=== PATIENT | male | born 1955 | race Caucasian/White ===

== ENCOUNTER 2016-08-04 07:06 | Inpatient (IN) | payer OTHER ==
[~2016-08-04] VITALS: Ht 172.7 cm; Wt 99.8 kg
--- NOTE | 2016-08-04 07:16 | NUR ---
C/O NUMBNESS AND TINGLING TO LEFT SIDE OF FACE AND LEFT ARM X 2 DAYS, OCCURRED AFTER RECEIVING A MASSAGE 2 DAYS AGO. DENIES CHEST PAIN. 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
--- NOTE | 2016-08-04 07:19 | ED NEURO DEFICIT/STROKE ---
History of Present Illness General Chief Complaint: General Adult Stated Complaint: NUMBNESS TO LEFT SIDE OF FACE Source: patient, family, old records Exam Limitations: no limitations Vital Signs & Intake/Output Vital Signs & Intake/Output Vital Signs Date Time Temp Pulse Resp B/P Pulse O2 O2 Flow FiO2 Ox Delivery Rate 08/05 2325 98.0 88 18 178/80 95 Room Air 08/05 1704 98.5 91 18 154/72 95 Room Air 08/05 0806 97.7 85 18 182/84 04 0700 97.7 85 18 182/84 95 Room Air 08/05 0034 98.3 77 18 168/78 97 Room Air ED Intake and Output 08/06 0000 08/05 1200 Intake Total 610 400 Output Total Balance 610 400 Intake, IV 10 Intake, Oral 600 400 Allergies Coded Allergies: No Known Allergies (08/04/16) Reconcile Medications Aspirin (Aspirin*) 325 MG TABLET 1 TAB PO DAILY HEART HEALTH (Reported) Naproxen Sodium (Aleve) 220 MG CAPSULE 2 CAP PO QPM HIP PAIN (Reported) Triage Note: C/O NUMBNESS AND TINGLING TO LEFT SIDE OF FACE AND LEFT ARM X 2 DAYS, OCCURRED AFTER RECEIVING A MASSAGE 2 DAYS AGO. DENIES CHEST PAIN Triage Nurses Notes Reviewed? yes Onset: Abrupt Duration: day(s):, constant, continues in ED, getting worse Severity: moderate, severe New Weakness: LUE Altered Sensations: left facial Impaired Ability: clumsiness LUE HPI: Patient presents for evaluation of left facial numbness and tingling that began about 2 days ago. pt has lower left facial and lue weakness that has been constant and worsening. phx of bells palsy. had a massage 2 days ago with a "floating feeling" since, in addition to feeling cold, sore throat and fatigue. Past History Travel History Traveled to [place] past 21 day No Medical History Any Pertinent Medical History? see below for history Cardiovascular: CAD Musculoskeletal: left hip problem Surgical History Surgical History: CABG, cholecystectomy Psychosocial History What is your primary language [place] Tobacco Use: Never used ETOH Use: denies use Family History Hx Contributory? No Review of Systems Review of Systems Constitutional: Reports: no symptoms. EENTM: Reports: no symptoms. Respiratory: Reports: no symptoms. Cardiovascular: Reports: no symptoms. GI: Reports: no symptoms. Genitourinary: Reports: no symptoms. Musculoskeletal: Reports: no symptoms. Skin: Reports: no symptoms. Neurological/Psychological: Reports: see HPI. Hematologic/Endocrine: Reports: no symptoms. Immunologic/Allergic: Reports: no symptoms. All Other Systems: Reviewed and Negative Physical Exam Physical Exam General Appearance: SEE BELOW Cranial Nerves: SEE BELOW Comments: Gen.: Well-nourished, well-developed, no acute respiratory distress. Head: Normocephalic, atraumatic. Eyes: Normal inspection bilaterally Ears: Normal inspection bilaterally Face: Left facial droop, decreased sensation over the lower half of the face, weakness of the left lower lid and bucinator muscle. Nose: Normal inspection Throat/mouth : Moist mucosa Neck: Supple, full range of motion, no goiter Heart: Regular rate and rhythm, no murmurs rubs or gallops Lungs: Clear to auscultation bilaterally with normal air entry Chest: Nontender Back: Normal range of motion Abdomen: Soft, nontender, nondistended, normal bowel sounds Extremities: Normal range of motion grossly, equal radial pulses, no cyanosis clubbing or edema, weakened piece hand of the left hand, decreased muscle strength of the left lower extremity (patient states is chronic secondary to hip disease) Neurologic: Cranial nerves , speech is clear Skin: warm and dry Psychiatric: Calm, cooperative, no apparent delusions or hallucinations Core Measures CVA/TIA Diagnosis: Yes Severe Sepsis Present: No Septic Shock Present: No Progress Differential Diagnosis: Varghese's Palsy, stroke Plan of Care: Orders Procedure Date/time Status House Staff 08/05 0718 Active Change service to 08/05 0718 Active Anticipated Discharge 08/05 UNK Active Therapeutic Exercises 08/05 UNK Complete OT EVAL LOW COMPLEX 30 MIN 08/05 UNK Complete Neuromuscular Re-Ed 08/05 UNK Complete ADL/SelfCare 08/05 UNK Complete Current Medications Sig/Heidi Start time Last Medication Dose Stop Time Status Admin Oxycodone/ 2 TAB Q6P PRN 08/04 1215 AC Acetaminophen (Percocet) Laboratory Tests 08/05/16 0627: Anion Gap 11, Estimated GFR > 60, BUN/Creatinine Ratio 21.4, Triglycerides 106, Cholesterol 175, LDL Cholesterol, Calc 111, HDL Cholesterol 43, Cholesterol/HDL Ratio 4, CBC w Diff NO MAN DIFF REQ, RBC 4.64 L, MCV 86.7, MCH 29.0, RDW 13.0, MPV 8.2, Gran % 70.6, Lymphocytes % 15.9 L, Monocytes % 9.4 H, Eosinophils % 3.7, Basophils % 0.4, Absolute Granulocytes 7.5 H, Absolute Lymphocytes 1.7, Absolute Monocytes 1.0 H, Absolute Eosinophils 0.4, Absolute Basophils 0, PUBS MCHC 33.4 Diagnostic Imaging: Discussed w/RAD: CT Scan. Radiology Impression: PATIENT: ARTURO ACOSTA PRESENT AGE: 60 PATIENT ACCOUNT NO: [id number] : 55 LOCATION: [facility] ORDERING PHYSICIAN: RAMSES VARGHESE MD SERVICE DATE: 08/04/16 EXAM TYPE: CAT - CT HEAD WO IV CONTRAST EXAMINATION: CT HEAD WITHOUT CONTRAST CLINICAL INFORMATION: Left facial weakness and left upper extremity weakness. COMPARISON: No relevant prior imaging is available. TECHNIQUE: Contiguous axial imaging was performed from the skull base to vertex without intravenous administration of contrast. DLP: 672.25 mGy-cm FINDINGS: There is no acute intracranial hemorrhage or abnormal extra-axial collection. No intracranial mass effect or midline shift. Lateral and third ventricles are normal. No hydrocephalus. Shepherd-white matter differentiation is preserved and there is no evidence of acute territorial infarct. A few scattered ill-defined foci of hypoattenuation are visualized within the periventricular white matter that most likely represent a chronic manifestation of small vessel ischemia. The calvarium and skull base are intact. Mastoid air cells and middle ear cavities are well aerated. There is mild paranasal sinus disease within the ethmoid air cells. IMPRESSION: There are a few scattered chronic small vessel ischemic changes within the periventricular white matter. No evidence of acute territorial infarct or hemorrhage. DICTATED BY: IGNACIO AG MD DATE/TIME DICTATED:08/04/16942 MANAGER VALUATION: KATHARINA DATE/TIME TRANSCRIBED:08/04/16942 CONFIDENTIAL, DO NOT COPY WITHOUT APPROPRIATE AUTHORIZATION. <Electronically signed in Other Vendor System> SIGNED BY: IGNACIO AG MD 08/04/1652 Initial ED EKG: NSR, rate (88) Comments: 08/04/2016 10:11:20 AM I have updated Arturo on his test results and he has no complaint at this time. As a matter fact his left arm feels better. Patient's case discussed with Dr. Jones who requests initiation of po labetolol. Departure Departure Disposition: STILL A PATIENT Condition: Stable Clinical Impression Primary Impression: CVA (cerebral vascular accident) Qualifiers: CVA mechanism: unspecified Qualified Code: I63.9 - Cerebral infarction, unspecified Referrals: LEIGH GHOSH,MALIKA Stoll (PCP/Family) Departure Forms: Customer Survey General Discharge Information Admission Note Spoke With: CANDE JONES MD Documentation of Exam: Documentation of any treatments & extenuating circumstances including Concerns Regarding Discharge (functional status, medication knowledge or non-compliance, living conditions, etc.) that warrant an admission rather than observation: Patient presents clinically consistent with a CVA. Although he provides a past history of "borderline high blood pressure), his blood pressure upon presentation to the emergency department was severely elevated requiring IV labetalol. I suspect the patient has had untreated hypertension for an unknown period of time. I feel he now requires hospitalization for urgent evaluation of reversible causes of his CVA and for the initiation of antihypertensive treatment. His severely high blood pressure places him at risk of CVA, chest pain, congestive heart failure and other end organ failure. i Do not feel he has a good candidate for outpatient management under the circumstances. In addition to initiation of antihypertensive medications and monitoring of heart rate and blood pressure, neurology consultation and follow-up MRI scan should also be considered. In addition cardiology consultation should also be considered as well as echocardiogram for possible cardioembolic disease. I feel this patient will require a multiple day hospitalization. Critical Care Note Critical Care Note Critical Care Time: 30-74 min
--- NOTE | 2016-08-04 07:30 | NUR ---
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 STATES THE FACIAL DROOP DEVELOPED TODAY. HX BELLS PALSY 1.5 YEARS AGO, FEELS "ABOUT THE SAME" THIS TIME.
--- NOTE | 2016-08-04 07:32 | NUR ---
MEDICAL STUDENT INTO EVALUATE PATIENT.
[2016-08-04 07:47] LABS: ABSOLUTE BASOPHIL COUNT 0 /CUMM (0.0-0.2); ABSOLUTE EOSINOPHIL COUNT 0.4 /CUMM (0.0-0.7); ABSOLUTE GRANULOCYTE CT 5.6 /CUMM (1.4-6.5); BASOPHIL % 0.5 % (0.0-2.0); EOSINOPHIL % 4.1 % (0-5); HEMATOCRIT 41.1 % (42-52); MEAN CORPUSCULAR HGB CONC 33.4 G/DL (33.0-37.0); MEAN CORPUSCULAR VOLUME 86.7 FL (80.0-94.0); PLATELET COUNT 266 /CUMM (130-400); RBC DISTRIBUTION WIDTH 12.9 % (11.5-14.5); RED BLOOD CELL CT 4.74 /CUMM (4.70-6.10)
--- NOTE | 2016-08-04 08:55 | NUR ---
PT MEDICATED WITH IV LABETALOL PER ORDERS
--- NOTE | 2016-08-04 09:17 | NUR ---
PT TO CT SCAN VIA STRETCHER AT THIS TIME.
--- NOTE | 2016-08-04 09:23 | NUR ---
PT RETURNS FROM CT SCAN
[2016-08-04] MEDS ORDERED: ASPIRIN325 M2 PO (09:24)
[2016-08-04] MEDS ORDERED: ALEVE220 M1 PO (09:25)
--- NOTE | 2016-08-04 09:52 | CT SCAN REPORT ---
EXAMINATION: CT HEAD WITHOUT CONTRAST CLINICAL INFORMATION: Left facial weakness and left upper extremity weakness. COMPARISON: No relevant prior imaging is available. TECHNIQUE: Contiguous axial imaging was performed from the skull base to vertex without intravenous administration of contrast. DLP: 672.25 mGy-cm FINDINGS: There is no acute intracranial hemorrhage or abnormal extra-axial collection. No intracranial mass effect or midline shift. Lateral and third ventricles are normal. No hydrocephalus. Shepherd-white matter differentiation is preserved and there is no evidence of acute territorial infarct. A few scattered ill-defined foci of hypoattenuation are visualized within the periventricular white matter that most likely represent a chronic manifestation of small vessel ischemia. The calvarium and skull base are intact. Mastoid air cells and middle ear cavities are well aerated. There is mild paranasal sinus disease within the ethmoid air cells. IMPRESSION: There are a few scattered chronic small vessel ischemic changes within the periventricular white matter. No evidence of acute territorial infarct or hemorrhage.
--- NOTE | 2016-08-04 10:26 | NUR ---
PT MEDICATED WITH PO LABETALOL PER ORDERS
--- NOTE | 2016-08-04 10:38 | History & Physical ---
ERNESTINA MARISCAL 08/04/16 1038: General Information and HPI MD Statement: I have seen and personally examined ARTURO ACOSTA and documented this H&P. The patient is a 60 year old M who presented with a patient stated chief complaint of [facial droop, left upper extremity change in sensation]. Source of Information: patient, family Exam Limitations: no limitations History of Present Illness: Mr Acosta is a 60-year-old gentleman with a PMH of CAD s/p triple vessel CABG at [facility] (2014), HTN, HLD, cholecystectomy (2012) who presents with complaints of left facial droop and change in sensation of his left extremity. He reports that on Wednesday he woke up with some mild generalized muscle aches and intermittent chills, went for his regular massage and 15 minutes after noticed significant increase in the chills and muscle aches which subsided as the day went on. 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 This morning he woke up and noticed that he was having a hard time holding onto his coffee mug using his left hand. He denied any overt weakness but did endorse some difficulty with performing the action of directing the coffee mug to his mouth. His friend also notices a new onset of left-sided facial droop which prompted him to come to the ER. 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 He also endorses a sick contact at work and flulike symptoms. ROS: Left-sided neck soreness/Sore throat that started yesterday, mild slurred speech this morning he denies any headaches, blurry vision, choking, difficulty swallowing, palpitations, shortness of breath, nausea, abdominal pain, numbness/ weakness in any of his extremities. NB: The patient was previously prescribed metoprolol, statin and aspirin but has not been any of these medications for one year due to noncompliance. Allergies/Medications Allergies: Coded Allergies: No Known Allergies (08/04/16) Home Med list Aspirin (Aspirin*) 325 MG TABLET 1 TAB PO DAILY HEART HEALTH (Reported) Naproxen Sodium (Aleve) 220 MG CAPSULE 2 CAP PO QPM HIP PAIN (Reported) Past History Travel History Traveled to [place] past 21 day No Medical History Neurological: BELLS PALSY EENT: NONE Cardiovascular: CAD, hyperlipidemia Respiratory: NONE Gastrointestinal: NONE Hepatic: NONE Renal: NONE Musculoskeletal: left hip problem Psychiatric: NONE Endocrine: NONE Blood Disorders: NONE Cancer(s): NONE INTERNAL GRINDER TENDER/Reproductive: NONE Surgical History Surgical History: CABG, cholecystectomy Past Family/Social History Psychosocial History ETOH Use: occasional use Illicit Drug Use: denies illicit drug use Review of Systems Review of Systems Constitutional: Reports: see HPI. EENTM: Reports: no symptoms. Cardiovascular: Reports: no symptoms. Respiratory: Reports: no symptoms. GI: Reports: no symptoms. Genitourinary: Reports: no symptoms. Musculoskeletal: Reports: see HPI. Neurological/Psychological: Reports: see HPI. Exam & Diagnostic Data Last 24 Hrs of Vital Signs/I&O Vital Signs Date Time Temp Pulse Resp B/P Pulse O2 O2 Flow FiO2 Ox Delivery Rate 08/04 1157 99.0 90 18 194/98 96 Room Air 08/04 1051 98.0 88 198/94 08/04 1025 80 192/98 08/04 1020 98.0 80 18 192/98 100 Room Air 08/04 0926 78 184/100 08/04 0926 97 Room Air Room Air 08/04 0925 98.1 74 20 184/100 96 Room Air 08/04 0855 80 208/100 08/04 0837 208/100 08/04 0836 225/107 08/04 0804 80 216/106 08/04 0748 98.6 08/04 0729 219/108 08/04 0717 83 18 220/110 95 Room Air Intake & Output 08/04 1600 08/04 0800 08/04 0000 Intake Total 120 Output Total Balance 120 Intake, Oral 120 Patient 220 lb Weight Physical Exam General Appearance Alert, Cooperative, No Acute Distress Skin No Breakdown HEENT PERRLA, Mucous Membr. moist/pink Neck No LAD, Left side of neck appears slightly powers than right, possibly secondary to the droop Cardiovascular Regular Rate, Normal S1, Normal S2 Lungs Clear to Auscultation, Normal Air Movement Abdomen Normal Bowel Sounds, Soft, No Tenderness Neurological Normal Speech, Strength at 5/5 X4 Ext, Normal Tone, Sensation Intact, Cranial Nerves 3-12 NL, At rest there is a complete left facial droop incorporating the V1 region. Facial wrinkling is preserved with eye opening action, There is a very slight dysmmetria in the LUE at full extension. Visual robbins are intact in all quadrants BL (-) neglect. Negative babinski Extremities No Edema, Normal Pulses Last 24 Hrs of Labs/Morales: Laboratory Tests 08/04/16 0740: Anion Gap 12, Estimated GFR > 60, BUN/Creatinine Ratio 21.4, Glucose 128 H, Calcium 9.9, Phosphorus Pending, Magnesium Pending, Total Bilirubin 0.4, AST 25, ALT 40, Alkaline Phosphatase 82, Troponin I 0.02, Total Protein 7.8, Albumin 4.4 , Globulin 3.4, Albumin/Globulin Ratio 1.3, CBC w Diff NO MAN DIFF REQ, RBC 4.74 , MCV 86.7, MCH 29.0, RDW 12.9, MPV 8.0, Gran % 62.0, Lymphocytes % 22.0, Monocytes % 11.4 H, Eosinophils % 4.1, Basophils % 0.5, Absolute Granulocytes 5.6, Absolute Lymphocytes 2.0, Absolute Monocytes 1.0 H, Absolute Eosinophils 0.4, Absolute Basophils 0, PUBS MCHC 33.4 08/04/16 0738: Lyme Disease Antibody Pending Diagnostic Data EKG Results Sinus rhythm, HR 80 bpm. Nonspecific intraventricular conduction delay. LA interval 176. QTC 450 Other Results There are a few scattered chronic small vessel ischemic changes within the periventricular white matter. No evidence of acute territorial infarct or hemorrhage. Assessment/Plan Assessment: 60-year-old gentleman with a PMH of CAD s/p triple vessel CABG at [facility] (2014), HTN, HLD, cholecystectomy (2013), previous Varghese's palsy who presents with complaints of left facial droop and change in sensation of his left extremity. Patient endorsed preceding generalized muscle aches/chills on Wednesday, went for regular massage later that day with worsening of myalgias/chills that subsided as the day went on. Woke up this morning and noticed difficulty with holding his coffee mug using his left hand. He was then noted to have a new onset left facial droop. Previously prescribed metoprolol, statin and aspirin which she has not been taking for over one year. He endorses a sick contact with flulike symptoms over one week ago. VS on admission BP 220/110, HR 83, RR 18, SPO2 95% on RA, T 98.6 Pertinent Labs: WBC 9.0, H&H 13.7/41.1, platelets 266, sodium 143, potassium 3.9 , chloride 103, bicarbonate 28, BUN/Cr CR 15/0.7, glucose [address] is indicated above Patient received labetalol 10 mg IV 1, aspirin 325 mg 1, labetalol 100 mg PO X1 in the ER. Problem list: 1. TIA/CVA 2. Hypertensive urgency 3. CAD s/p triple vessel CABG (2014) noncompliant with medications for> 1 year 4. Hypertension 5. Hyperlipidemia Plan: * Admit to telemetry for continuous cardiac monitoring * DDX: TIA/CVA vs Varghese's palsy in the setting of recent sick contact vs carotid injury s/p massage with complaints of "sore throat sensation and fullness in the left neck" * Cardiology on board: Follow-up echocardiogram and carotid ultrasound no evidence of heart block on EKG. We'll follow-up Lyme titer * Follow-up lipid panel in the a.m. Patient will likely benefit from medium/high dose atorvastatin, aspirin and beta hubert therapy with his history of CAD and possible TIA/CVA * Neurology consult placed. Will follow up with recommendations for target blood pressure. At this time would be inclined to maintain a blood pressure of 160/90 * MRI of head tomorrow * Bedside swallow has been passed * Heart healthy diet * Neurochecks Q3 * DVT prophylaxis: ALPs. Will defer starting pharmacological anticoagulation until carotid ultrasound has been performed to rule out any evidence of vascular injury * Full code As Ranked By This Provider Problem List: 1. CVA (cerebral vascular accident) Qualifiers CVA mechanism: unspecified Qualified Code: I63.9 - Cerebral infarction, unspecified 2. Hypertensive urgency 3. CAD (coronary artery disease) Core Measures/Miscellaneous Acute Coronary Syndrome ACS Diagnosis: No Cerebrovascular Accident CVA/TIA Diagnosis: Yes NIH Stroke Scale: Total 2 Date Last Known Well: 08/04/16 Neurological S/S of CVA: Facial Hemiparesis Symptom Start Date: 08/04/16 Bedside Swallow Eval Done: Yes Result of Evaluation: Pass Antithrombotic: Yes AFIB: No Aflutter: No Evidence of Atherosclerosis: Yes LDL Assessed Within 24 Hours: Yes Currently on Statin: Yes Congestive Heart Failure CHF Diagnosis: No Venous Thromboembolism VTE Risk Factors: Age > 40 No Mech VTE prophylaxis d/t: No contraindications No VTE Pharm Prophylaxis d/t: No contraindications VTE Diagnosis: No VTE Type: NONE VTE Confirmed by (Test): NONE Severe Sepsis Severe Sepsis Present: No Septic Shock Septic Shock Present: No Miscellaneous Documentation Attending Case Discussed With: CANDE JONES MD Primary Care Physician: MALIKA ABRAHAM MD Patient sees these Specialists Dr Pang (personnel officer in [place]) Level of Patient Care: Telemetry Resident Review Statement Resident Statement: examined this patient, discussed with equine internship, agreed with equine internship, discussed with family, reviewed EMR data (avail), discussed with case mgmt, reviewed images CANDE JONES MD 08/04/166: Attending MD Review Statement Attending Statement Attending MD Statement: examined this patient, discuss w/resident/PA/BIOINFORMATICS SCIENTIST, agreed w/resident/PA/BIOINFORMATICS SCIENTIST, reviewed EMR data (avail) Attending Assessment/Plan: 60M presenting with acute CVA with left facial droop and left upper extremity apraxia. History of CAD s/p CABG, HTN, HLD. Symptoms have persisted and started 1 day ago, not a candidate for tPA. No tele events. Passed bedside swallow. Will continue ASA, start Plavix, high dose statin, obtain MRI head, carotid doppler, echocardiogram. BP improved now, will continue current management and decrease slowly tomorrow. Follow cardiology and neurology recommendations.
--- NOTE | 2016-08-04 11:01 | NUR ---
HOUSE STAFF AT BEDSIDE
--- NOTE | 2016-08-04 11:25 | Cons- Cardiology ---
See Addendum ANTONELLA CASAS MD 08/04/16 1125: General Information and HPI Consulting Request Date of Consult: 08/04/16 Requested By: CANDE JONES MD Reason for Consult: TIA/ CVA Source of Information: patient, family Exam Limitations: no limitations History of Present Illness: Mr. Emerson is a 60-year-old gentleman with known coronary artery disease. He received his first coronary stents at age 43 back in 1997, he subsequently underwent a CABG in 2014. He also has a former history of smoking. He is followed by Dr. Wilian Pang (Cardiology) in [place]. He presented today with left upper extremity tingling and numbness and left facial droop of 2 days' duration. Patient states that the symptoms started initially 2 days ago after he had a massage. Patient also states that about a year ago he abruptly stopped taking all his meds namely an aspirin, statin and beta hubert. He has not notified his PCP or his collector of internal revenue of his abrupt cessation of medications. He stated that after getting the massage couple of days ago he noted that he was "floating". Today when he went to go left a coffee cup with his left hand he noticed some weakness and inability to have a strong supervisor calibration. Subsequently he came to the emergency room with his for evaluation. At present he states that his symptoms have resolved. While in the emergency room his blood pressure was found to be 200 systolic. Allergies/Medications Allergies: Coded Allergies: No Known Allergies (08/04/16) Home Med List: Aspirin (Aspirin*) 325 MG TABLET 1 TAB PO DAILY HEART HEALTH (Reported) Naproxen Sodium (Aleve) 220 MG CAPSULE 2 CAP PO QPM HIP PAIN (Reported) Review of Systems Review of Systems Constitutional: Reports: see HPI. 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 Surgical History Surgical History: CABG, cholecystectomy Psychosocial History Smoking Status: Former Smoker ETOH Use: occasional use Illicit Drug Use: denies illicit drug use Exam & Diagnostic Data Vital Signs and I&O Vital Signs Date Time Temp Pulse Resp B/P Pulse O2 O2 Flow FiO2 Ox Delivery Rate 08/04 1051 98.0 88 198/94 08/04 1025 80 192/98 08/04 1020 98.0 80 18 192/98 100 Room Air 08/04 0926 78 184/100 08/04 0926 97 Room Air Room Air 08/04 0925 98.1 74 20 184/100 96 Room Air 08/04 0855 80 208/100 08/04 0837 208/100 08/04 0836 225/107 08/04 0804 80 216/106 08/04 0748 98.6 08/04 0729 219/108 08/04 0717 83 18 220/110 95 Room Air Intake & Output 08/04 1600 08/04 0800 08/04 0000 08/03 1600 08/03 0808/03 0000 Intake Total 120 Output Total Balance 120 Intake, Oral 120 Patient 220 lb Weight Physical Exam General Appearance: well developed/nourished, no apparent distress, alert, awake , comfortable Head: atraumatic, normal appearance Eyes: Bilateral: normal appearance, PERRL, EOMI. Ears, Nose, Throat: normal pharynx, normal ENT inspection, hearing grossly normal Respiratory: normal breath sounds, chest non-tender, no respiratory distress Cardiovascular: regular rate/rhythm Gastrointestinal: normal bowel sounds, soft, non-tender Extremities: normal inspection, normal capillary refill, normal range of motion Cranial Nerves: normal hearing, normal speech, PERRL, facial droop Labs/Morales Results: Laboratory Tests 08/04 08/04 0740 0738 Chemistry Sodium (137 - 145 mmol/L) 143 Potassium (3.5 - 5.1 mmol/L) 3.9 Chloride (98 - 107 mmol/L) 103 Carbon Dioxide (22 - 30 mmol/L) 28 Anion Gap (5 - 16) 12 BUN (9 - 20 mg/dL) 15 Creatinine (0.7 - 1.2 mg/dL) 0.7 Estimated GFR (>60 ml/min) > 60 BUN/Creatinine Ratio (7 - 25 %) 21.4 Glucose (65 - 99 mg/dL) 128 H Calcium (8.4 - 10.2 mg/dL) 9.9 Total Bilirubin (0.2 - 1.3 mg/dL) 0.4 AST (17 - 59 U/L) 25 ALT (21 - 72 U/L) 40 Alkaline Phosphatase (< 127 U/L) 82 Troponin I (<0.11 ng/ml) 0.02 Total Protein (6.3 - 8.2 g/dL) 7.8 Albumin (3.5 - 5.0 g/dL) 4.4 Globulin (1.9 - 4.2 gm/dL) 3.4 Albumin/Globulin Ratio (1.1 - 2.2 %) 1.3 Hematology CBC w Diff NO MAN DIFF REQ WBC (4.8 - 10.8 /CUMM) 9.0 RBC (4.70 - 6.10 /CUMM) 4.74 Hgb (14.0 - 18.0 G/DL) 13.7 L Hct (42 - 52 %) 41.1 L MCV (80.0 - 94.0 FL) 86.7 MCH (27.0 - 31.0 PG) 29.0 RDW (11.5 - 14.5 %) 12.9 Plt Count (130 - 400 /CUMM) 266 MPV (7.4 - 10.4 FL) 8.0 Gran % (42.2 - 75.2 %) 62.0 Lymphocytes % (20.5 - 51.1 %) 22.0 Monocytes % (1.7 - 9.3 %) 11.4 H Eosinophils % (0 - 5 %) 4.1 Basophils % (0.0 - 2.0 %) 0.5 Absolute Granulocytes (1.4 - 6.5 /CUMM) 5.6 Absolute Lymphocytes (1.2 - 3.4 /CUMM) 2.0 Absolute Monocytes (0.10 - 0.60 /CUMM) 1.0 H Absolute Eosinophils (0.0 - 0.7 /CUMM) 0.4 Absolute Basophils (0.0 - 0.2 /CUMM) 0 PUBS MCHC (33.0 - 37.0 G/DL) 33.4 Serology Lyme Disease Antibody Pending Diagnostic Data EKG Results Rate 88, P1 76, QRS 112, QTC [address], nonspecific ST-T wave changes Other Results PATIENT: ARTURO ACOSTA PRESENT AGE: 60 PATIENT ACCOUNT NO: [id number] : 55 LOCATION: [facility] ORDERING PHYSICIAN: RAMSES BORGES MD SERVICE DATE: 08/04/16 EXAM TYPE: CAT - CT HEAD WO IV CONTRAST EXAMINATION: CT HEAD WITHOUT CONTRAST CLINICAL INFORMATION: Left facial weakness and left upper extremity weakness. COMPARISON: No relevant prior imaging is available. TECHNIQUE: Contiguous axial imaging was performed from the skull base to vertex without intravenous administration of contrast. DLP: 672.25 mGy-cm FINDINGS: There is no acute intracranial hemorrhage or abnormal extra-axial collection. No intracranial mass effect or midline shift. Lateral and third ventricles are normal. No hydrocephalus. Shepherd-white matter differentiation is preserved and there is no evidence of acute territorial infarct. A few scattered ill-defined foci of hypoattenuation are visualized within the periventricular white matter that most likely represent a chronic manifestation of small vessel ischemia. The calvarium and skull base are intact. Mastoid air cells and middle ear cavities are well aerated. There is mild paranasal sinus disease within the ethmoid air cells. IMPRESSION: There are a few scattered chronic small vessel ischemic changes within the periventricular white matter. No evidence of acute territorial infarct or hemorrhage. DICTATED BY: IGNACIO AG MD DATE/TIME DICTATED:08/04/16942 SAND MIXER OPERATOR:KATHARINA DATE/TIME TRANSCRIBED:08/04/16942 CONFIDENTIAL, DO NOT COPY WITHOUT APPROPRIATE AUTHORIZATION. <Electronically signed in Other Vendor System> SIGNED BY: IGNACIO AG MD 08/04 0952 Assessment/Plan Assessment/Plan Assessment- 1. CVA/TIA; his symptoms could be secondary to embolization of a carotid plaque versus carotid dissection after getting massage 2 days ago 2. Hypertension 3. HLD 4. CAD, s/p stents placed in 1999, CABG in 2014 5. Hypertensive urgency Plan- - Trend troponin EKG - Transthoracic echocardiogram - Start high-dose statin - Aspirin 81 mg daily starting tomorrow (he is already received 325 mg today) - Carotid Dopplers - Neurology consult; addressing goal blood pressure with neurology and titrate labetalol accordingly - Consider MRA neck to r/o carotid dissection - Compliance with medication regime was extensively discussed and reinforced with the patient and his who was present at bedside Consult Acknowledgment - Thank you for your consult request. CAMACHO SHIPMAN MD 08/04/16 2016: Assessment/Plan Assessment/Plan Attending Addendum: The patient was seen and examined by me and all available data, including ECGs, were personally reviewed by myself. The case was discussed with the patient and her as well as the medical housestaff. I agree with the plan as outlined above. Consult Acknowledgment - Thank you for your consult request.
--- NOTE | 2016-08-04 11:33 | NUR ---
RESIDENT AT BEDSIDE. UNABLE TO COMPLETE NIHSS AT THIS TIME PT IS BEING EVALUATED BY RESIDENT. BP 190/100, RESIDENT AWARE.
--- NOTE | 2016-08-04 12:05 | NUR ---
HOUSE STAFF HANNAH COMPLETE. PT ALERT, AMBULATING INDEPENDENTLY AROUND ROOM, SR 80S ON MONITOR, NO COMPLAINTS. NIHSS 0 AT THIS TIME. LEFT FACIAL DROOP NOTED, SPEECH CLEAR. MEAL TRAY ORDERED.
--- NOTE | 2016-08-04 12:27 | NUR ---
PT TO US ON STRETCHER NOW.
--- NOTE | 2016-08-04 13:38 | ULTRASOUND REPORT ---
EXAMINATION: DUPLEX BILATERAL CAROTID ULTRASOUND CLINICAL INFORMATION: TIA versus dissection. Left-sided facial paralysis status post massage. COMPARISON: None. TECHNIQUE: \H\B\N\ilateral carotid US was performed using real-time ultrasound and Doppler techniques (integrating B-mode 2D vascular images, Doppler spectral analysis and color flow Doppler imaging). These techniques were utilized to interrogate the extracranial carotid and vertebral arteries bilaterally. The degree of stenosis is based off criteria similar to NASCET. FINDINGS: Right side: 1. Small amount of hyperechoic plaque is seen in the ECA/ICA region. 2. The common carotid artery velocity is 140 cm/s. 3. The internal carotid artery velocities are 86 cm/s systolic and 17 cm/s diastolic. 4. The external carotid artery velocity is 152 cm/s. Left side: 1. Small amount of hyperechoic plaque is seen in the ECA/ICA region. 2. The common carotid artery velocity is 125 cm/s. 3. The internal carotid artery velocities are 103 cm/s systolic and 28 cm/s diastolic. 4. The external carotid artery velocity is 143 cm/s. ADDITIONAL FINDINGS: 1. The vertebral arteries show antegrade flow. IMPRESSION: 1. RIGHT: Minimal, nonhemodynamically significant stenosis of the proximal right internal carotid artery corresponding to a 0-49% stenosis by velocity criteria. 2. LEFT: Minimal, nonhemodynamically significant stenosis of the proximal left internal carotid artery corresponding to a 0-49% stenosis by velocity criteria.
--- NOTE | 2016-08-04 14:02 | NUR ---
DR GARCIA AT BEDSIDE. PT EATING LUNCH.
--- NOTE | 2016-08-04 15:07 | NUR ---
SITTING AT END OF STRETCHER, DOING HAND EXERCISES, NO COMPLAINTS. AWAITING BED ASSIGNMENT. PT WEARING T-SHIRT AND SWEAT PANTS WTIH NON-SKID SOCKS, DOES NOT WANT TO CHANGE INTO GOWN AT THIS TIME. T-SHIRT HAS POCKET FOR PORTABLE TELE PACK.
--- NOTE | 2016-08-04 15:47 | NUR ---
ROOM 187
--- NOTE | 2016-08-04 16:31 | NUR ---
DR KEYES AT BEDSIDE. TELE CALLED FOR REPORT, UNABLE TO TAKE REPORT UNTIL BED IS CLEAN.
--- NOTE | 2016-08-04 17:01 | NUR ---
REPORT CALLED TO YONATAN ON 1N. PER RN, PT CANNOT COME TO TELE WITH ORDER FOR NIHSS Q1H. HAS BEEN SCORING "0" SINCE NOON. RESIDENT PAGED TO DISCUSS, AWAITING CALLBACK. PT CAN GO TO TELE IF ORDER IS CHANGED TO Q2.
--- NOTE | 2016-08-04 17:05 | Cons- Neurology ---
"General Information and HPI Consulting Request Date of Consult: 08/04/16 Requested By: CANDE JONES MD Reason for Consult: Weakness left face and arm Source of Information: patient, family, EMS Exam Limitations: no limitations History of Present Illness: 60-year-old right-handed man who awakened yesterday morning and noted difficulty using his left hand while dressing. In the mirror he noted weakness of the left face as well. Some associated slurring of speech according to his . No headache or leg symptoms. He also denies any loss of feeling on the left side or any change in vision. 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 Allergies/Medications Allergies: Coded Allergies: No Known Allergies (08/04/16) Home Med List: Aspirin (Aspirin*) 325 MG TABLET 1 TAB PO DAILY HEART HEALTH (Reported) Naproxen Sodium (Aleve) 220 MG CAPSULE 2 CAP PO QPM HIP PAIN (Reported) Current Medications: Current Medications Sig/Heidi Start time Last Medication Dose Route Stop Time Status Admin Amlodipine Besylate 0 .STK-MED ONE 08/04 1649 DC PO Amlodipine Besylate 5 MG DAILY 08/04 1630 AC 08/04 PO 1647 Aspirin 0 .STK-MED ONE 08/04 1007 DC PO Aspirin 325 MG ONCE ONE 08/04 1000 DC 08/04 PO 08/04 1001 1007 Atorvastatin Calcium 80 MG 1700 08/04 1700 AC 08/04 PO 1647 Ibuprofen 600 MG Q6P PRN 08/04 1215 AC PO Labetalol HCl 0 .STK-MED ONE 08/04 1327 DC IV Labetalol HCl 5 MG ONCE ONE 08/04 1315 DC 08/04 IV 08/04 1316 1327 Labetalol HCl 0 .STK-MED ONE 08/04 1026 DC PO Labetalol HCl 100 MG ONCE ONE 08/04 1015 DC 08/04 PO 08/04 1016 1025 Labetalol HCl 0 .STK-MED ONE 08/04 0854 DC IV Labetalol HCl 10 MG ONCE ONE 08/04 0815 DC 08/04 IV 08/04 0816 0855 Oxycodone/ 1 TAB Q6P PRN 08/04 1215 AC Acetaminophen PO Oxycodone/ 2 TAB Q6P PRN 08/04 1215 AC Acetaminophen PO Review of Systems Review of Systems: ROS: The patient had no constitutional complaints. Vision clear, no diplopia ENT: No vertigo or tinnitus or hearing loss Cardiac: |Chest pain and palpitations denied Respiratory: No dyspnea or wheezing GI: No abdominal pain nausea or diarrhea. 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 Surgical History Surgical History: CABG, cholecystectomy Psychosocial History Smoking Status: Former Smoker ETOH Use: occasional use Illicit Drug Use: denies illicit drug use Exam & Diagnostic Data Vital Signs and I&O Vital Signs Date Time Temp Pulse Resp B/P Pulse O2 O2 Flow FiO2 Ox Delivery Rate 08/04 1647 97.0 78 20 170/84 08/04 1640 97.0 78 20 170/84 98 Room Air 08/04 1532 71 18 182/90 98 Room Air 08/04 1404 78 172/88 08/04 1327 98.7 78 22 180/86 08/04 1326 98.7 78 22 180/86 96 Room Air 08/04 1304 97.4 72 18 198/104 96 Room Air 08/04 1157 99.0 90 18 194/98 96 Room Air 08/04 1051 98.0 88 198/94 08/04 1025 80 192/98 08/04 1020 98.0 80 18 192/98 100 Room Air 08/04 0926 78 184/100 08/04 0926 97 Room Air Room Air 08/04 0925 98.1 74 20 184/100 96 Room Air 08/04 0855 80 208/100 08/04 0837 208/100 08/04 0836 225/107 08/04 0804 80 216/106 08/04 0748 98.6 08/04 0729 219/108 08/04 0717 83 18 220/110 95 Room Air Intake & Output 08/04 1600 08/04 0800 08/04 0000 Intake Total 120 Output Total Balance 120 Intake, Oral 120 Patient 220 lb Weight Physical Exam: On exam the patient appeared generally well and in no distress. No carotid bruits and no cardiac murmur. No peripheral edema Mental status: Alert, attentive, fully oriented, no language errors, recall and general fund of knowledge seem intact Funduscopic unremarkable Visual robbins full , Eye movements full without nystagmus, pupils midsize equal round and reactive to light. Facial movement weak on left, lower face more than upper Facial sensation normal bilaterally Hearing intact bilaterally Uvula elevates midline Tongue protrusion is midline Shoulder shrug symmetric Motor : Reduced internal communications specialist on left, pronator and slight downward drift of the left arm. Praxis diminished on movements of left fingers and hand Sensation intact to primary modes Tendon reflexes normal and symmetric without pathologic signs Coordination no ataxia Gait within normal limits, heel and toe walking okay, Romberg okay Last 48 Hours of Lab Results: Laboratory Tests 08/04 08/04 0740 0738 Chemistry Sodium (137 - 145 mmol/L) 143 Potassium (3.5 - 5.1 mmol/L) 3.9 Chloride (98 - 107 mmol/L) 103 Carbon Dioxide (22 - 30 mmol/L) 28 Anion Gap (5 - 16) 12 BUN (9 - 20 mg/dL) 15 Creatinine (0.7 - 1.2 mg/dL) 0.7 Estimated GFR (>60 ml/min) > 60 BUN/Creatinine Ratio (7 - 25 %) 21.4 Glucose (65 - 99 mg/dL) 128 H Calcium (8.4 - 10.2 mg/dL) 9.9 Phosphorus (2.5 - 4.5 mg/dL) 3.8 Magnesium (1.6 - 2.3 mg/dL) 2.1 Total Bilirubin (0.2 - 1.3 mg/dL) 0.4 AST (17 - 59 U/L) 25 ALT (21 - 72 U/L) 40 Alkaline Phosphatase (< 127 U/L) 82 Troponin I (<0.11 ng/ml) 0.02 Total Protein (6.3 - 8.2 g/dL) 7.8 Albumin (3.5 - 5.0 g/dL) 4.4 Globulin (1.9 - 4.2 gm/dL) 3.4 Albumin/Globulin Ratio (1.1 - 2.2 %) 1.3 Hematology CBC w Diff NO MAN DIFF REQ WBC (4.8 - 10.8 /CUMM) 9.0 RBC (4.70 - 6.10 /CUMM) 4.74 Hgb (14.0 - 18.0 G/DL) 13.7 L Hct (42 - 52 %) 41.1 L MCV (80.0 - 94.0 FL) 86.7 MCH (27.0 - 31.0 PG) 29.0 RDW (11.5 - 14.5 %) 12.9 Plt Count (130 - 400 /CUMM) 266 MPV (7.4 - 10.4 FL) 8.0 Gran % (42.2 - 75.2 %) 62.0 Lymphocytes % (20.5 - 51.1 %) 22.0 Monocytes % (1.7 - 9.3 %) 11.4 H Eosinophils % (0 - 5 %) 4.1 Basophils % (0.0 - 2.0 %) 0.5 Absolute Granulocytes (1.4 - 6.5 /CUMM) 5.6 Absolute Lymphocytes (1.2 - 3.4 /CUMM) 2.0 Absolute Monocytes (0.10 - 0.60 /CUMM) 1.0 H Absolute Eosinophils (0.0 - 0.7 /CUMM) 0.4 Absolute Basophils (0.0 - 0.2 /CUMM) 0 PUBS MCHC (33.0 - 37.0 G/DL) 33.4 Serology Lyme Disease Antibody Pending Imaging/Other Studies: Carotid Dopplers: 1. The vertebral arteries show antegrade flow. IMPRESSION: 1. RIGHT: Minimal, nonhemodynamically significant stenosis of the proximal right internal carotid artery corresponding to a 0-49% stenosis by velocity criteria. 2. LEFT: Minimal, nonhemodynamically significant stenosis of the proximal left internal carotid artery corresponding to a 0-49% stenosis by velocity criteria. CT scan of the head without contrast: There are a few scattered chronic small vessel ischemic changes within the periventricular white matter. No evidence of acute territorial infarct or hemorrhage. Assessment/Plan Assessment: Stroke, sudden onset of left face and arm weakness, motor only syndrome, probable small right subcortical lacune. Patient reports some improvement since onset . Occurred while on aspirin Recommendations: MRI of the brain with diffusion-weighted images Echocardiogram Telemetry Lipid profile Add Plavix 75 MG daily to his aspirin 81 MG Atorvastatin 40 MG daily Occupational therapy consultation Consult Acknowledgment - Thank you for your consult request."
--- NOTE | 2016-08-04 17:15 | NUR ---
[facility] ORDER CHANGED. [facility] CALLED FOR TRANSPORT TO FLOOR.
[2016-08-04 18:21] VITALS: BP 180/92
[2016-08-04 21:38] VITALS: BP 180/80
[2016-08-05 00:34] VITALS: BP 168/78
[2016-08-05 07:00] VITALS: BP 182/84
--- NOTE | 2016-08-05 07:23 | PN- Housestaff ---
ELVIN GHOSH,[facility] 08/05/16 0723: Subjective Follow-up For: 1. Acute Ischemic Stroke Tele-Events Since Last Visit: NSR 86 -97 Subjective: The patient was alert, oriented x3, normal speech, no change in symptoms, but has persistent weakness of his left hand, arm and facial droop. He denies any chest pains, SOB, further weakness or sensaty changes, is able to ambulate well, no abdominal pain, N.V.D Review of Systems Constitutional: Reports: see HPI. Cardiovascular: Denies: chest pain, orthopena, palpitations, peripheral edema. Respiratory: Denies: short of breath, sputum production, wheezing. Gastrointestinal: Denies: abdominal pain. Genitourinary: Denies: discharge, dysuria, frequency. Musculoskeletal: Reports: see HPI. Neurological/Psychological: Reports: see HPI, weakness. Objective Last 24 Hrs of Vital Signs/I&O Vital Signs Date Time Temp Pulse Resp B/P Pulse O2 O2 Flow FiO2 Ox Delivery Rate 08/05 0806 97.7 85 18 182/84 08/05 0700 97.7 85 18 182/84 95 Room Air 08/05 0034 98.3 77 18 168/78 97 Room Air 08/04 2138 98.6 82 18 180/80 98 Room Air 08/04 1821 97.8 83 20 180/92 96 Room Air 08/04 1647 97.0 78 20 170/84 11 1640 97.0 78 20 170/84 98 Room Air 08/04 1532 71 18 182/90 98 Room Air Intake & Output 08/05 1600 08/05 0800 08/05 0000 Intake Total 610 400 360 Output Total Balance 610 400 360 Intake, IV 10 Intake, Oral 600 400 360 Patient 220 lb Weight Physical Exam General Appearance: Alert, Oriented X3, Cooperative, No Acute Distress Neck: Supple, No JVD Cardiovascular: Regular Rate, Normal S1, Normal S2, No Murmurs Lungs: Clear to Auscultation, Normal Air Movement Neurological: Normal Gait, Normal Speech, Normal Tone, Sensation Intact, Cranial Nerves 3-12 NL, Reflexes 2+, strenght 3/5 in the left upper extremity. 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, ni wrinkles on left forehead, clearing of nasolabial folds on the left Extremities: No Edema, Normal Pulses Vascular: Pulses Symmetrical Current Medications: Current Medications Sig/Heidi Start time Last Medication Dose Route Stop Time Status Admin Amlodipine Besylate 0 .STK-MED ONE 08/04 1649 DC PO Amlodipine Besylate 5 MG DAILY 08/04 1630 AC 08/05 PO 0806 Atorvastatin Calcium 80 MG 1700 08/04 1700 AC 08/04 PO 1647 Clopidogrel Bisulfate 75 MG DAILY 08/04 1909 AC 08/05 PO 0807 Ibuprofen 600 MG Q6P PRN 08/04 1215 AC 08/05 PO 0019 Influenza Virus 0.5 ML ONCE ONE 08/04 1815 DC Vaccine IM 08/04 181 Oxycodone/ 1 TAB Q6P PRN 08/04 1215 AC 08/05 Acetaminophen PO 0236 Oxycodone/ 2 TAB Q6P PRN 08/04 1215 AC Acetaminophen PO Last 24 Hrs of Lab/Morales Results Last 24 Hrs of Labs/Mics: Laboratory Tests 08/05/16 0627: Anion Gap 11, Estimated GFR > 60, BUN/Creatinine Ratio 21.4, Triglycerides 106, Cholesterol 175, LDL Cholesterol, Calc 111, HDL Cholesterol 43, Cholesterol/HDL Ratio 4, CBC w Diff NO MAN DIFF REQ, RBC 4.64 L, MCV 86.7, MCH 29.0, RDW 13.0, MPV 8.2, Gran % 70.6, Lymphocytes % 15.9 L, Monocytes % 9.4 H, Eosinophils % 3.7, Basophils % 0.4, Absolute Granulocytes 7.5 H, Absolute Lymphocytes 1.7, Absolute Monocytes 1.0 H, Absolute Eosinophils 0.4, Absolute Basophils 0, PUBS MCHC 33.4 Lines/Diet/Fluids Restraints: none Assessment/Plan Assessment: 60-year-old right-handed man who woke up one day prior to admission and noted difficulty using his left hand while dressing and noticed his facial expression change in the mirror. reported associated slurring of speech, which was not present on admission. He denied any loss of feeling on the left side or any change in vision. 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 Assesment and Plan: 1. Ischemic Stroke: - The patient was admitted to [facility], started on ASA and Plavix - CT head showed few scattered chronic small vessel ischemic changes within the periventricular white matter. - MRi done today (08/05/16) that showed are acute infarcts in the right basal ganglia and right alvarado radiata and background of chronic microvascular ischemic disease and diffuse volume loss. - Will continue with PT/OT - Willl maintain BP between 170-180/90-100 2. Hypertensive urgency: - BP goal 160-180 - Permissive hypertension - Will monitor 3. Heart healthy Diet 4. Sc heparin 5. FULL CODE Problem List: 1. CAD (coronary artery disease) 2. CVA (cerebral vascular accident) Pain Ratin Pain Location: None Pain Goal: Remain pain free Pain Plan: PRN Tylenol and oxycodone Tomorrow's Labs & Rationales: Not needed DVT/Prophylaxis: pharmacological CANDE JONES MD 08/06/16 1051: Attending MD Review Statement Attending Statement Attending MD Statement: examined this patient, discuss w/resident/PA/ASSURANCE ASSOCIATE, agreed w/resident/PA/ASSURANCE ASSOCIATE, reviewed EMR data (avail)
--- NOTE | 2016-08-05 09:00 | PN- Cardiology ---
Subjective Subjective: Doing OK. Stable and largely improved. Cardiac stable. Objective Vital Signs and I&Os Vital Signs Date Time Temp Pulse Resp B/P Pulse O2 O2 Flow FiO2 Ox Delivery Rate 08/05 0806 97.7 85 18 182/84 08/05 0700 97.7 85 18 182/84 95 Room Air 08/05 0034 98.3 77 18 168/78 97 Room Air 08/04 2138 98.6 82 18 180/80 98 Room Air 08/04 1821 97.8 83 20 180/92 96 Room Air 08/04 1647 97.0 78 20 170/84 08/04 1640 97.0 78 20 170/84 98 Room Air 08/04 1532 71 18 182/90 98 Room Air 08/04 1404 78 172/88 08/04 1327 98.7 78 22 180/86 08/04 1326 98.7 78 22 180/86 96 Room Air 08/04 1304 97.4 72 18 198/104 96 Room Air 08/04 1157 99.0 90 18 194/98 96 Room Air 08/04 1051 98.0 88 198/94 08/04 1025 80 192/98 08/04 1020 98.0 80 18 192/98 100 Room Air 08/04 0926 78 184/100 08/04 0926 97 Room Air Room Air 08/04 0925 98.1 74 20 184/100 96 Room Air Intake & Output 08/05 1600 08/05 0800 08/05 0000 08/04 1600 08/04 0800 08/04 0000 Intake Total 400 360 120 Output Total Balance 400 360 120 Intake, Oral 400 360 120 Patient 220 lb 220 lb Weight Current Medications: Current Medications Sig/Heidi Start time Last Medication Dose Route Stop Time Status Admin Amlodipine Besylate 0 .STK-MED ONE 08/04 1649 DC PO Amlodipine Besylate 5 MG DAILY 08/04 1630 AC 08/05 PO 0806 Aspirin 0 .STK-MED ONE 08/04 1007 DC PO Aspirin 325 MG ONCE ONE 08/04 1000 DC 08/04 PO 08/04 1001 1007 Atorvastatin Calcium 80 MG 1700 08/04 1700 AC 08/04 PO 1647 Clopidogrel Bisulfate 75 MG DAILY 08/04 1909 AC 08/05 PO 0807 Ibuprofen 600 MG Q6P PRN 08/04 1215 AC 08/05 PO 0019 Influenza Virus 0.5 ML ONCE ONE 08/04 1815 DC Vaccine IM 08/04 181 Labetalol HCl 0 .STK-MED ONE 08/04 1327 DC IV Labetalol HCl 5 MG ONCE ONE 08/04 1315 DC 08/04 IV 08/04 1316 1327 Labetalol HCl 0 .STK-MED ONE 08/04 1026 DC PO Labetalol HCl 100 MG ONCE ONE 08/04 1015 DC 08/04 PO 08/04 1016 1025 Oxycodone/ 1 TAB Q6P PRN 08/04 1215 AC 08/05 Acetaminophen PO 0236 Oxycodone/ 2 TAB Q6P PRN 08/04 1215 AC Acetaminophen PO Results Last 48 Hrs of Labs/Mics: Laboratory Tests 08/05/16 0627: Anion Gap 11, Estimated GFR > 60, BUN/Creatinine Ratio 21.4, Triglycerides 106, Cholesterol 175, LDL Cholesterol, Calc 111, HDL Cholesterol 43, Cholesterol/HDL Ratio 4, CBC w Diff Pending, WBC Pending, RBC Pending, Hgb Pending, Hct Pending, MCV Pending, MCH Pending, RDW Pending, Plt Count Pending, MPV Pending, PUBS MCHC Pending 08/04/16 0740: Anion Gap 12, Estimated GFR > 60, BUN/Creatinine Ratio 21.4, Glucose 128 H, Calcium 9.9, Phosphorus 3.8, Magnesium 2.1, Total Bilirubin 0.4, AST 25, ALT 40, Alkaline Phosphatase 82, Troponin I 0.02, Total Protein 7.8, Albumin 4.4, Globulin 3.4, Albumin/Globulin Ratio 1.3, CBC w Diff NO MAN DIFF REQ, RBC 4.74, MCV 86.7, MCH 29.0, RDW 12.9, MPV 8.0, Gran % 62.0, Lymphocytes % 22.0, Monocytes % 11.4 H, Eosinophils % 4.1, Basophils % 0.5, Absolute Granulocytes 5.6, Absolute Lymphocytes 2.0, Absolute Monocytes 1.0 H, Absolute Eosinophils 0.4, Absolute Basophils 0, PUBS MCHC 33.4 08/04/16 0738: Lyme Disease Antibody Pending Assessment/Plan Assessment/Plan Assessment- 1. CVA/TIA; his symptoms could be secondary to embolization of a carotid plaque versus carotid dissection after getting massage 2 days ago 2. Hypertension 3. HLD 4. CAD, s/p stents placed in 1999, CABG in 2014 5. Hypertensive urgency Plan- - Clinically improved - MRI pending - Neurology followup pending - BP improved, continue current regimen pending NEuro input. Continue telemetry? Yes
[2016-08-05 09:15] LABS: ABSOLUTE BASOPHIL COUNT 0 /CUMM (0.0-0.2); ABSOLUTE EOSINOPHIL COUNT 0.4 /CUMM (0.0-0.7); ABSOLUTE GRANULOCYTE CT 7.5 /CUMM (1.4-6.5); ABSOLUTE LYMPH COUNT 1.7 /CUMM (1.2-3.4); BASOPHIL % 0.4 % (0.0-2.0); EOSINOPHIL % 3.7 % (0-5); GRANULOCYTE % 70.6 % (42.2-75.2); HEMATOCRIT 40.3 % (42-52); MEAN CORPUSCULAR HGB CONC 33.4 G/DL (33.0-37.0); MEAN CORPUSCULAR VOLUME 86.7 FL (80.0-94.0); MEAN PLATELET VOLUME 8.2 FL (7.4-10.4); PLATELET COUNT 264 /CUMM (130-400); RED BLOOD CELL CT 4.64 /CUMM (4.70-6.10); WHITE BLOOD CELL COUNT 10.6 /CUMM (4.8-10.8)
--- NOTE | 2016-08-05 10:51 | MRI REPORT ---
EXAMINATION: MR BRAIN WITHOUT CONTRAST CLINICAL INFORMATION: Left-sided facial droop, slurring of speech and left arm weakness. COMPARISON: CT scan of the head 08/04/2016. TECHNIQUE: MRI of the brain without contrast was obtained using routine sequences. FINDINGS: There are small areas of restricted effusion in the right basal ganglia/right alvarado radiata consistent with acute infarcts. These regions demonstrate increased T2 and FLAIR signal. There is no evidence of hemorrhage. No mass effect or midline shift is seen. The ventricles and sulci are slightly commensurately prominent consistent with mild diffuse volume loss. There are also multiple scattered foci of increased T2 and FLAIR signal in the periventricular and subcortical white matter, consistent with chronic microvascular ischemic changes. There are lacunar infarcts in the bilateral alvarado radiata. No extra-axial fluid collections are seen. The brainstem and cerebellum are normal. No pathologic magnetic susceptibility artifact is identified elsewhere on the gradient refocused acquisition. The craniovertebral junction, marrow signal, and midline structures are normal. The major intracranial flow-voids at the level of the [place] are preserved. The dural venous sinus flow-voids are maintained. The mastoid air cells are well aerated. There is mucoperiosteal thickening in the right sphenoid, right ethmoid and bilateral frontal sinuses. IMPRESSION: 1. There are acute infarcts in the right basal ganglia and right alvarado radiata. There is no evidence of hemorrhage. 2. There is a background of chronic microvascular ischemic disease and diffuse volume loss. This critical result was discussed with Anita Landa by telephone on 08/05/2016 10:30 AM and it was ascertained that the content and urgency of the report was understood at the time of direct communication.
--- NOTE | 2016-08-05 15:49 | PN- Neurology ---
Subjective Subjective: MRI confirms CVA. Speech and arm subjectively a little better. Review of Systems: No headache or cardiac symptoms. reports recent psychological stressors Objective Vital Signs and I&Os Vital Signs Date Time Temp Pulse Resp B/P Pulse O2 O2 Flow FiO2 Ox Delivery Rate 08/05 0806 97.7 85 18 182/84 08/05 0700 97.7 85 18 182/84 95 Room Air 08/05 0034 98.3 77 18 168/78 97 Room Air 08/04 2138 98.6 82 18 180/80 98 Room Air 08/04 1821 97.8 83 20 180/92 96 Room Air 08/04 1647 97.0 78 20 170/84 08/04 1640 97.0 78 20 170/84 98 Room Air Intake & Output 08/05 1600 08/05 0800 08/05 0000 08/04 1600 08/04 0800 08/04 0000 Intake Total 610 400 360 120 Output Total Balance 610 400 360 120 Intake, IV 10 Intake, Oral 600 400 360 120 Patient 220 lb 220 lb Weight Physical Exam: Alert. 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 fine finger control reduced left Current Medications: Current Medications Sig/Heidi Start time Last Medication Dose Route Stop Time Status Admin Amlodipine Besylate 0 .STK-MED ONE 08/04 1649 DC PO Amlodipine Besylate 5 MG DAILY 08/04 1630 AC 08/05 PO 0806 Atorvastatin Calcium 80 MG 1700 08/04 1700 AC 08/04 PO 1647 Clopidogrel Bisulfate 75 MG DAILY 08/04 1909 AC 08/05 PO 0807 Ibuprofen 600 MG Q6P PRN 08/04 1215 AC 08/05 PO 0019 Influenza Virus 0.5 ML ONCE ONE 08/04 1815 DC Vaccine IM 08/04 181 Oxycodone/ 1 TAB Q6P PRN 08/04 1215 AC 08/05 Acetaminophen PO 0236 Oxycodone/ 2 TAB Q6P PRN 08/04 1215 AC Acetaminophen PO Results Last 24 Hours of Lab Results: Laboratory Tests 08/05 0627 Chemistry Sodium (137 - 145 mmol/L) 140 Potassium (3.5 - 5.1 mmol/L) 4.3 Chloride (98 - 107 mmol/L) 101 Carbon Dioxide (22 - 30 mmol/L) 28 Anion Gap (5 - 16) 11 BUN (9 - 20 mg/dL) 15 Creatinine (0.7 - 1.2 mg/dL) 0.7 Estimated GFR (>60 ml/min) > 60 BUN/Creatinine Ratio (7 - 25 %) 21.4 Triglycerides (<150 mg/dL) 106 Cholesterol (< 200 MG/DL) 175 LDL Cholesterol, Calc (65 - 129 mg/dL) 111 HDL Cholesterol (40 - 60 mg/dL) 43 Cholesterol/HDL Ratio (0.00 - 4.88 %) 4 Hematology CBC w Diff NO MAN DIFF REQ WBC (4.8 - 10.8 /CUMM) 10.6 RBC (4.70 - 6.10 /CUMM) 4.64 L Hgb (14.0 - 18.0 G/DL) 13.4 L Hct (42 - 52 %) 40.3 L MCV (80.0 - 94.0 FL) 86.7 MCH (27.0 - 31.0 PG) 29.0 RDW (11.5 - 14.5 %) 13.0 Plt Count (130 - 400 /CUMM) 264 MPV (7.4 - 10.4 FL) 8.2 Gran % (42.2 - 75.2 %) 70.6 Lymphocytes % (20.5 - 51.1 %) 15.9 L Monocytes % (1.7 - 9.3 %) 9.4 H Eosinophils % (0 - 5 %) 3.7 Basophils % (0.0 - 2.0 %) 0.4 Absolute Granulocytes (1.4 - 6.5 /CUMM) 7.5 H Absolute Lymphocytes (1.2 - 3.4 /CUMM) 1.7 Absolute Monocytes (0.10 - 0.60 /CUMM) 1.0 H Absolute Eosinophils (0.0 - 0.7 /CUMM) 0.4 Absolute Basophils (0.0 - 0.2 /CUMM) 0 PUBS MCHC (33.0 - 37.0 G/DL) 33.4 Recent Imaging Studies: MRI: There are small areas of restricted effusion in the right basal ganglia/ right alvarado radiata consistent with acute infarcts. These regions demonstrate increased T2 and FLAIR signal. There is no evidence of hemorrhage. No mass effect or midline shift is seen. The ventricles and sulci are slightly commensurately prominent consistent with mild diffuse volume loss. There are also multiple scattered foci of increased T2 and FLAIR signal in the periventricular and subcortical white matter, consistent with chronic microvascular ischemic changes. 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 good candidtate for out-pt PT/OT after discharge call back if can be of further assistance
[2016-08-05 17:04] VITALS: BP 154/72
[2016-08-05] MEDS ORDERED: ATORVASTATIN CA80 M1 PO (17:24)
[2016-08-05] MEDS ORDERED: PLAVIX75 M1 PO (17:24)
[2016-08-05 23:25] VITALS: BP 178/80
--- NOTE | 2016-08-06 07:24 | PN- Housestaff ---
ELVIN GHOSH,SANDIP 08/06/16 0724: Subjective Follow-up For: 1. 1. Acute Ischemic Stroke Tele-Events Since Last Visit: NSR 73 - 92, no events Subjective: The patient feels well ingeneral, there is no worsening of weakness, but he has had high blood pressures, to as high as 190/110 in the morning today. He doesn ot report of any headaches, chest pain, lightheadedness or visual changes. Speech is normal. Review of Systems Constitutional: Reports: see HPI. Cardiovascular: Reports: no symptoms. Respiratory: Reports: no symptoms. Gastrointestinal: Reports: no symptoms. Genitourinary: Reports: no symptoms. Musculoskeletal: Reports: no symptoms. Neurological/Psychological: Reports: see HPI, weakness. Objective Last 24 Hrs of Vital Signs/I&O Vital Signs Date Time Temp Pulse Resp B/P Pulse O2 O2 Flow FiO2 Ox Delivery Rate 08/06 1133 190/92 08/06 0853 80 190/80 08/06 0806 99.2 80 18 198/80 96 Room Air 08/05 2325 98.0 88 18 178/80 95 Room Air 08/05 1704 98.5 91 18 154/72 95 Room Air Intake & Output 08/06 1600 08/06 0800 08/06 0000 Intake Total 400 600 Output Total Balance 400 600 Intake, Oral 400 600 Physical Exam General Appearance: Alert, Oriented X3, Cooperative, No Acute Distress Cardiovascular: Regular Rate, Normal S1, Normal S2, No Murmurs Lungs: Clear to Auscultation, Normal Air Movement Neurological: Normal Gait (limping d/t chr L hip arthriti), Normal Speech, Cranial Nerves 3-12 NL, 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 reported associated slurring of speech, which was not present on admission. He denied any loss of feeling on the left side or any change in vision. 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 Assesment and Plan: 1. Ischemic Stroke: - The patient was admitted to [facility], started on ASA and Plavix - CT head showed few scattered chronic small vessel ischemic changes within the periventricular white matter. - MRi done today (08/05/16) that showed are acute infarcts in the right basal ganglia and right alvarado radiata and background of chronic microvascular ischemic disease and diffuse volume loss. - Will continue with PT/OT - Willl maintain BP between 170-180/90-100 2. Hypertensive urgency: - BP goal 160-180 - Permissive hypertension - Will monitor 3. Heart healthy Diet 4. Sc heparin 5. FULL CODE Problem List: 1. CVA (cerebral vascular accident) 2. Hypertensive urgency Pain Ratin Pain Location: None Pain Goal: Remain pain free Pain Plan: PRN Tylenol Tomorrow's Labs & Rationales: None DVT/Prophylaxis: pharmacological Consulting Request: Consulting Specialty: Neurology Consulting Physician: DR. Barnett Reason for Consult: Stroke Discharge Plan Discharge Disposition: home Stable for Discharge? No Anticipated Discharge (Day): tomorrow If Discharged Today/In 24 Hrs: enter ant[facility] discharge ord, W-10/discharge paper done, CMR done CANDE JONES MD 08/06/16 1052: Attending MD Review Statement Attending Statement Attending MD Statement: examined this patient, discuss w/resident/PA[employer], agreed w/resident/PA[employer], reviewed EMR data (avail) Attending Assessment/Plan: 60M PMH HTN, HLD admitted with acute onset of left facial droop and left hand apraxia in the setting of acute ischemic CVA, not a candidate for tPA due to timing of presentation. Patient feels improved today. Left facial droop still present but slightly improved, left hand functionality improved as well. Walking without difficulty, no new neurological symptoms, neuro exam otherwise unchanged. No tele events. BP 190/90 today. 1. Acute ischemic CVA of right basal ganglia and right alvarado radiata 2. Left facial droop 3. Left hand apraxia 4. Essential hypertension Plan - Continue on telemetry - Continue ASA and Plavix - Increase Amlodipine to 10mg daily - Start Lisinopril 2.5mg daily - Follow up echocardiogram - PT/OT - Atorvastatin 80mg daily - DVT PPx - Anticipated discharge home tomorrow with outpatient cardiology and physical therapy/occupational therapy - Send CMR for review - No labs tomorrow
[2016-08-06 08:06] VITALS: BP 198/80
[2016-08-06] MEDS ORDERED: LISINOPRIL5 M1 PO (10:53)
[2016-08-06] MEDS ORDERED: AMLODIPINE BESY10 M1 PO (10:53)
--- NOTE | 2016-08-06 10:57 | Patient Discharge Instructions ---
Discharge Instructions General Discharge Information You were seen/treated for: 1. Ischemic Stroke You had these procedures: CT Scan of [facility] Head MRI of the Head Watch for these problems: Weakness, altered mental status, lightheadedness, chest pain, changes in vision, slurred speech Special Instructions: 1. Follow up with your primary care physician 1 week after discharge 2. Follow up with Dr. Barnett after discharge 3. Continue with the new medications as prescribed 4. Make the lifestyle changes counseled about espcially changes in diet and exercise Diet Continue normal diet: No Recommended Diet: Heart Healthy, Low Fat Activity Full Activity/No Limits: Yes Acute Coronary Syndrome Inclusion Criteria At DC or during hospital stay patient has or had the following: ACS DIAGNOSIS No Discharge Core Measures Meds if any: Prescribed or Continued at Discharge Meds if any: NOT Prescribed or Continued at Discharge Congestive Heart Failure Inclusion Criteria At DC or during hospital stay patient has or had the following: CHF DIAGNOSIS No Discharge Core Measures Meds if any: Prescribed or Continued at Discharge Meds if any: NOT Prescribed or Continued at Discharge Cerebrovascular accident Inclusion Criteria At DC or during hospital stay patient has or had the following: CVA/TIA Diagnosis Yes Discharge Core Measures Meds if any: Prescribed or Continued at Discharge Antithrombotic Yes Statin (required if LDL =>70) Yes Anticoagulant No Meds if any: NOT Prescribed or Continued at Discharge No Anticoagulant d/t Medical Contraindication Venous thromboembolism Inclusion Criteria VTE Diagnosis No VTE Type NONE VTE Confirmed by (Test) NONE Discharge Core Measures - Per Current guidelines, there needs to be overlap - treatment for the first 5 days of Warfarin therapy. - If discharged on Warfarin prior to 5 days of - overlap therapy, the patient will need to be - assessed for post discharge needs including - *Post discharge parental anticoagulation - *Warfarin and/or parental anticoagulation education - *Follow up date to check INR post discharge At least 5 days overlap therapy as Inpatient No Meds if any: Prescribed or Continued at Discharge Note: Overlap Therapy is Warfarin and Anticoagulant Meds if any: NOT Prescribed or Continued at Discharge
[2016-08-06] MEDS ORDERED: ASPIRIN81 M4 PO (11:02)
[2016-08-06 11:33] VITALS: BP 190/92
--- NOTE | 2016-08-06 12:37 | ECHOCARDIOGRAM REPORT ---
ARTURO ACOSTA Age: 60 : 1955 Gender: M Exam Date: 08/05/2016 18:26 Exam Location: 1 [address] Ht (in): 69 Wt (lb): 220 BSA: 2.24 BP: 168 / 78 Ordering Physician: ERNESTINA MARISCAL MD Referring Physician: Amelia Murphy MD Technologist: Sarahi Lester [facility] Room Number: 187 Indications: STROKE Rhythm: Sinus Technical Quality: Poor, Technically difficult study FINDINGS Left Ventricle Normal size left ventricle. Left ventricular wall thickness moderately increased. Normal left ventricular ejection fraction estimated at 60-65%. Abnormal left ventricular diastolic filling pattern for age. Right Ventricle Right ventricle not well visualized, grossly normal. Right Atrium Right atrium not well visualized, grossly normal. Left Atrium Left atrial size at the upper limits of normal. Mitral Valve Mitral valve thickened. Mild mitral annular calcification. Trace to mild mitral regurgitation. Aortic Valve Trileaflet aortic valve. Diffuse thickening of the aortic valve cusps with reduced excursion. Mild aortic stenosis. Tricuspid Valve Tricuspid valve not well visualized. Trace to mild tricuspid regurgitation. Pulmonic Valve Pulmonic valve not well visualized, grossly normal. Pericardium No pericardial effusion. Great Vessels Aortic root and proximal ascending aorta not well visualized, grossly normal. Plaque seen in the ascending aorta. CONCLUSIONS 1. This was a technically difficult and limited examination due to the patient's body habitus. 2. 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 3. Mitral leaflet thickening is present with mild anular calcification and minimal to mild mitral insufficiency. 4. There is no pericardial fluid detected. 5. The left ventricular chamber size is normal with moderate concentric hypertrophy and a normal ejection fraction with no obvious resting wall motion abnormalities. 6. Mild LV diastolic dysfunction is present. 7. The right heart structures were not optimally assessed. Minimal to mild tricuspid insufficiency is present. The RV systolic pressure was not accurately assessed. Amelia Murphy M.D. (Electronically Signed) Final Date: 06 August 2016 12:36 MEASUREMENTS (Male / Female) Normal Values 2D ECHO LV Diastolic Diameter PLAX 4.2 cm 4.2 - 5.9 / 3.9 - 5.3 cm LV Systolic Diameter PLAX 2.0 cm 2.1 - 4.0 cm LV Fractional Shortening PLAX 52.4 % 25 - 46 % LV Ejection Fraction 2D Teich 83.8 % IVS Diastolic Thickness 1.7 cm LVPW Diastolic Thickness 1.6 cm LV Relative Wall Thickness 0.8 RV Internal Dim ED PLAX 2.1 cm 1.9 - 3.8 cm LVOT Diameter 2.3 cm Aortic Root Diameter 3.2 cm LA Systolic Diameter LX 3.4 cm 3.0 - 4.0 / 2.7 - 3.8 cm LA Volume 27.0 cm 18 - 58 / 22 - 52 cm Ascending Aorta Diameter 4.2 cm DOPPLER AV Peak Velocity 221.0 cm/s AV Peak Gradient 19.5 mmHg AV Mean Velocity 156.0 cm/s AV Mean Gradient 11.0 mmHg AV Velocity Time Integral 37.2 cm LVOT Peak Velocity 140.0 cm/s LVOT Peak Gradient 7.8 mmHg LVOT Mean Velocity 101.0 cm/s LVOT Mean Gradient 5.0 mmHg LVOT Velocity Time Integral 25.9 cm LVOT Stroke Volume 107.6 cm AV Area Cont Eq vti 2.9 cm AV Area Cont Eq pk 2.6 cm MV Peak Velocity 109.0 cm/s MV Peak Gradient 4.8 mmHg MV Mean Velocity 74.7 cm/s MV Mean Gradient 3.0 mmHg Mitral E Point Velocity 88.4 cm/s Mitral A Point Velocity 118.0 cm/s Mitral E to A Ratio 0.7 MV PHT Velocity 108.0 cm/s MV Deceleration [place] 468.0 cm/s MV Pressure Half Time 69.2 ms MV Area PHT 3.2 cm MV Deceleration Time 285.0 ms TR Peak Velocity 114.0 cm/s TR Peak Gradient 5.2 mmHg Right Atrial Pressure 5.0 mmHg Pulmonary Artery Systolic Pressu 10.2 mmHg Right Ventricular Systolic Press 10.2 mmHg PV Peak Velocity 125.0 cm/s PV Peak Gradient 6.3 mmHg PV Mean Velocity 76.4 cm/s PV Mean Gradient 3.0 mmHg PV Velocity Time Integral 19.9 cm LV E' Lateral Velocity 6.6 cm/s Mitral E to LV E' Lateral Ratio 13.3 LV E' Septal Velocity 5.9 cm/s Mitral E to LV E' Septal Ratio 15.1
--- NOTE | 2016-08-06 12:52 | Discharge Summary ---
Visit Information Visit Dates Admission Date: 08/04/16 Discharge Date: 08/08/16 Hospital Course Course Attending Physician: CANDE JONES MD Primary Care Physician: LEIGH GHOSH,MALIKA Stoll Consulting Request: Consulting Specialty: Neurology Consulting Physician: DR. Barnett Reason for Consult: Stroke Hospital Course: 60-year-old right-handed man with a PMH of CAD s/p triple vessel CABG at [facility] (2014), HTN, HLD, cholecystectomy (2013), previous Varghese's palsy, woke up one day prior to admission and noted difficulty using his left hand while dressing and noticed his facial expression change in the mirror. reported associated slurring of speech, which was not present on admission. He denied any loss of feeling on the left side or any change in vision. Vitals on admission: BP 220/110, HR 83, RR 18, SPO2 95% on RA, T 98.6 Pertinent Labs: WBC 9.0, H&H 13.7/41.1, platelets 266, sodium 143, potassium 3.9, chloride 103, bicarbonate 28, BUN/Cr CR 15/0.7, glucose [address]: A few scattered chronic small vessel ischemic changes within the periventricular white matter. No evidence of acute territorial infarct or hemorrhage. Patient received labetalol 10 mg IV 1, aspirin 325 mg 1, labetalol 100 mg PO X1 in the ER. Admitted to [facility] for acute stroke. Problem List: 1. Acute Ischemic Stroke: With the above mentioned complaints, the patient had a high suspicion for a stroke. he under went a head MRI that showed acute infarcts in the right basal ganglia and right alvarado radiata but no evidence of hemorrhage. He also had carotid dopplers that showed minimal, nonhemodynamically significant stenosis of the proximal right and left internal carotid artery corresponding to a 0-49% stenosis by velocity criteria. He was started on Aspirin 81 mg after a loading dose of 325 mg that was given in the ED. he was also started on Plavix 75 mg Po Daily. Lipis panel was checked. He was started on Atorvastatin 80 mg Po Daily. Initially his blood pressure goal was 160-180 SBP to allow for permissive hypertension. But eventually his BP was managed to bring it down to < 140-150 SBP. His BP was a bit hard to get down and eventually came down to 130s with triple drug therapt including Amlodipine 10 PO Daily, Lisinopril 40 mg PO Daily and HCTZ 12.5 mg PO Daily. He remianed stable in the hospital, with no worsening of symptoms. As the patient was functionally doing well, ambulating with a limp (which is baseline due to arthritis of his left hip), he woudl be discharged home with out patient OT/PT. 2. Hypertensive urgency: The patient presented with a BP of 220/110. The goal BP for his ischemic stroke was 160-180 SBP. He initially received IV labetalol in the ED. There after he was started on Amlodipine 5 mg. The second day of admission Neuro recommended to gradualy bring the BP down with a goal of < 140-150. The patient's blood pressure was resistent to single drug therapy and constantly remained at 180s despite increasing Amlodipine to 10 mg and adding 10 g of Lisinopril. On 08/07/16 he started having palpitations with BP 190/90 despite getting IV hydralazine 10 mg x 1. EKG showe Sinus tachy with a rete of [address]-T wave changes. BP was checked in both arms. Right was 148/60 and Left was 180/80. He was given IV Labetalol 5 mg x 1 and stat CTA- aoryic dissection protocol was done that was fortunately negative for aortic dissection. His regimen was changed to Lisinopril 40 mg PO Daily, HCTZ 12.5 mg PO Daily and Amlodipine 10 mg PO Daily after which his blood presure was adequately controlled and remained in 130s. 3. He was maintained on a Heart healthy Diet and was extensively counseled about lifestyle modification including adding physical activity in his daily routine and shifting to healthy, non-fatty, low-carb, low-meat diet with more fruits, vegetables and water. 4. SC heparin was given for DVT PPx 5. FULL CODE Allergies: Coded Allergies: No Known Allergies (08/04/16) Significant Procedures: MRI Head CT Head CTA - aortic dissection protocol Disposition Summary Disposition Principal Diagnosis: 1. Acute Ischemic Stroke 2. Hypertensive Urgency Additional Diagnosis: hyperlipidemia obesity Discharge Disposition: home or self care (out patient PT/OT) Discharge Instructions General Discharge Information Code Status: Full Code Patient's Diet: Heart Healthy Diet Patient's Activity: As tolerated Follow-Up Instructions/Appts: 1. Follow up with your primary care physician 1 week after discharge 2. Follow up with Dr. Barnett after discharge 3. Continue with the new medications as prescribed 4. Make the lifestyle changes counseled about espcially changes in diet and exercise Medications at Discharge Discharge Medications: Stop taking the following medications: Aspirin (Aspirin*) 325 MG TABLET ORAL DAILY Continue taking these medications: Naproxen Sodium (Aleve) 220 MG CAPSULE 2 Capsule ORAL Every night Comments: NOT GIVEN IN HOSPITAL Start taking the following new medications: Clopidogrel Bisulfate (Plavix) 75 MG TABLET 75 Milligram ORAL DAILY Qty = 30 No Refills Comments: Last Taken: 08/08/16 Time: 10 am Atorvastatin Calcium (Atorvastatin Calcium) 80 MG TABLET 80 Milligram ORAL 5 PM Qty = 30 No Refills Comments: Last Taken: 08/07/16 Time: 7 pm Amlodipine Besylate (Amlodipine Besylate) 10 MG TABLET 1 Tablet ORAL DAILY Qty = 30 No Refills Comments: Last Taken: 08/08/16 Time: 10 AM Aspirin (Aspirin*) 81 MG TAB.CHEW 1 Tablet ORAL DAILY Qty = 30 No Refills Comments: Last Taken: 08/04/13 Time: 10 AM 325MG GIVEN Hydrochlorothiazide (Hydrochlorothiazide) 12.5 MG CAPSULE 1 Capsule ORAL DAILY Qty = 30 No Refills Comments: Last Taken: 08/08/16 Time: 10 am Lisinopril (Lisinopril) 40 MG TABLET 1 Tablet ORAL DAILY Qty = 30 No Refills Comments: Last Taken: 08/08/16 Time: 10 am Copies To: MYA JONES MD, MD,MALIKA Berman; UMBERTO GHOSH,Crow CHUNG; LEIGH GHOSH,MALIKA Stoll
[2016-08-06 16:11] VITALS: BP 170/90
--- NOTE | 2016-08-06 19:01 | PN- Cardiology ---
Subjective Subjective: Stable and improved neurologically. Optimizing BP control. Objective Vital Signs and I&Os Vital Signs Date Time Temp Pulse Resp B/P Pulse O2 O2 Flow FiO2 Ox Delivery Rate 08/06 1611 99.0 80 20 170/90 97 Room Air 08/06 1133 190/92 08/06 0853 80 190/80 08/06 0806 99.2 80 18 198/80 96 Room Air 08/05 2325 98.0 88 18 178/80 95 Room Air Intake & Output 08/06 1600 08/06 0800 08/06 0000 08/05 1600 08/05 0800 08/05 0000 Intake Total 600 400 600 610 400 360 Output Total Balance 600 400 600 610 400 360 Intake, IV 10 Intake, Oral 600 400 600 600 400 360 Patient 220 lb Weight Current Medications: Current Medications Sig/Heidi Start time Last Medication Dose Route Stop Time Status Admin Amlodipine Besylate 10 MG DAILY 08/07 1000 AC PO Amlodipine Besylate 5 MG ONCE ONE 08/06 1100 DC 08/06 PO 08/06 1101 1235 Amlodipine Besylate 5 MG DAILY 08/04 1630 AC 08/06 PO 0853 Atorvastatin Calcium 80 MG 1700 08/04 1700 AC 08/06 PO 1724 Clopidogrel Bisulfate 75 MG DAILY 08/04 1909 AC 08/06 PO 0852 Ibuprofen 600 MG Q6P PRN 08/04 1215 AC 08/06 PO 0410 Lisinopril 5 MG DAILY 08/06 1052 AC 08/06 PO 1236 Oxycodone/ 1 TAB Q6P PRN 08/04 1215 AC 08/05 Acetaminophen PO 2329 Oxycodone/ 2 TAB Q6P PRN 08/04 1215 AC Acetaminophen PO Results Last 48 Hrs of Labs/Mics: Laboratory Tests 08/05/16 0627: Anion Gap 11, Estimated GFR > 60, BUN/Creatinine Ratio 21.4, Triglycerides 106, Cholesterol 175, LDL Cholesterol, Calc 111, HDL Cholesterol 43, Cholesterol/HDL Ratio 4, CBC w Diff NO MAN DIFF REQ, RBC 4.64 L, MCV 86.7, MCH 29.0, RDW 13.0, MPV 8.2, Gran % 70.6, Lymphocytes % 15.9 L, Monocytes % 9.4 H, Eosinophils % 3.7, Basophils % 0.4, Absolute Granulocytes 7.5 H, Absolute Lymphocytes 1.7, Absolute Monocytes 1.0 H, Absolute Eosinophils 0.4, Absolute Basophils 0, PUBS MCHC 33.4 Assessment/Plan Assessment/Plan Assessment- 1. CVA/TIA; his symptoms could be secondary to embolization of a carotid plaque versus carotid dissection after getting massage 2 days ago 2. Hypertension 3. HLD 4. CAD, s/p stents placed in 1999, CABG in 2014 5. Hypertensive urgency Plan- - Clinically improved - MRI noted - Neurology input noted - BP remians elevated. REgimen being optimized as discussed with the housestaff. Continue telemetry? Yes
[2016-08-07 01:20] VITALS: BP 178/80
--- NOTE | 2016-08-07 07:12 | PN- Housestaff ---
ELVIN GHOSH,SANDIP 08/07/16 0711: Subjective Follow-up For: 1. Acute Ischemic Stroke Tele-Events Since Last Visit: SR 79 - 102, no events Subjective: Patient feels well and wants to go home. No reports of worsening weakness, slurred speech, visual changes. Blood pressure remained in 170s SBP Review of Systems Constitutional: Reports: see HPI. Cardiovascular: Reports: no symptoms. Respiratory: Reports: no symptoms. Gastrointestinal: Reports: no symptoms. Genitourinary: Reports: no symptoms. Objective Last 24 Hrs of Vital Signs/I&O Vital Signs Date Time Temp Pulse Resp B/P Pulse O2 O2 Flow FiO2 Ox Delivery Rate 08/07 0746 98.4 75 14 170/80 95 Room Air 08/07 0120 98.8 99 20 178/80 97 Room Air 08/07 0000 Room Air 08/06 1611 99.0 80 20 170/90 97 Room Air 08/06 1600 97 Room Air 08/06 1133 190/92 08/06 0853 80 190/80 08/06 0806 99.2 80 18 198/80 96 Room Air Intake & Output 08/07 1600 08/07 0800 08/07 0000 Intake Total 500 Output Total Balance 500 Intake, Oral 500 Number 0 Bowel Movements Physical Exam General Appearance: Alert, Oriented X3, Cooperative, No Acute Distress Cardiovascular: Regular Rate, Normal S1, Normal S2, No Murmurs Lungs: Clear to Auscultation Abdomen: Normal Bowel Sounds, Soft, No Tenderness, No Hepatospenomegaly Neurological: Normal Speech, Normal Tone, Sensation Intact, Cranial Nerves 3-12 NL, survey project manager 3/5, LUE 4/5, rest 5/5 Extremities: No Edema, Normal Pulses Current Medications: Current Medications Sig/Heidi Start time Last Medication Dose Route Stop Time Status Admin Amlodipine Besylate 10 MG DAILY 08/07 1000 AC PO Amlodipine Besylate 5 MG ONCE ONE 08/06 1100 DC 08/06 PO 08/06 1101 1235 Amlodipine Besylate 5 MG DAILY 08/04 1630 AC 08/06 PO 0853 Atorvastatin Calcium 80 MG 1700 08/04 1700 AC 08/06 PO 1724 Clopidogrel Bisulfate 75 MG DAILY 08/04 1909 AC 08/06 PO 0852 Ibuprofen 600 MG Q6P PRN 08/04 1215 AC 08/07 PO 0049 Lisinopril 10 MG DAILY 08/07 1000 AC PO Lisinopril 5 MG DAILY 08/06 1052 DC 08/06 PO 1236 Oxycodone/ 1 TAB Q6P PRN 08/04 1215 AC 08/07 Acetaminophen PO 0352 Oxycodone/ 2 TAB Q6P PRN 08/04 1215 AC Acetaminophen PO Polyethylene Glycol 17 GM DAILY 08/07 1000 AC PO Senna/Docusate Sodium 1 TAB BID PRN 08/07 0100 AC PO Assessment/Plan Assessment: 60-year-old right-handed man who woke up one day prior to admission and noted difficulty using his left hand while dressing and noticed his facial expression change in the mirror. reported associated slurring of speech, which was not present on admission. He denied any loss of feeling on the left side or any change in vision. 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 Assesment and Plan: 1. Acute Ischemic Stroke: - With MRI evidence of acute infarcts in the right basal ganglia and right alvarado radiata - Continue ASA, plavix and Atorvastatin - Will continue with PT/OT - Goal BP < 140-150, but has remained in 170s. - Controlling BP with incraesed medications as mentioned below - Possible DC today 2. Hypertensive urgency: - BP goal < 140- 150 - Yes terday Amlodipine was increased to 10 mg and lisinopril 5 mg was added but BP remains in 170s. It was in 190s yesterday. - Will increase Lisinopril to 10 mg today 3. Heart healthy Diet 4. Sc heparin 5. FULL CODE Problem List: 1. Hypertensive urgency 2. CVA (cerebral vascular accident) Pain Ratin Pain Location: None Pain Goal: Remain pain free Pain Plan: PRN TYlenol Tomorrow's Labs & Rationales: Not needed DVT/Prophylaxis: pharmacological Consulting Request: Consulting Specialty: Neurology Consulting Physician: DR. Barnett Reason for Consult: Stroke Discharge Plan Discharge Disposition: home Stable for Discharge? Yes Anticipated Discharge (Day): today If Discharged Today/In 24 Hrs: enter antc discharge ord, DC summary done, CMR done CANDE JONES MD 08/07/16 1351: Attending MD Review Statement Attending Statement Attending MD Statement: examined this patient, discuss w/resident/PA/ASSISTANT KITCHEN MANAGER, agreed w/resident/PA/ASSISTANT KITCHEN MANAGER, reviewed EMR data (avail) Attending Assessment/Plan: 60M PMH HTN, HLD admitted with acute onset of left facial droop and left hand apraxia in the setting of acute ischemic CVA, not a candidate for tPA due to timing of presentation. Patient feels improved today. Left facial droop still present but slightly improved, left hand functionality improved as well. Walking without difficulty, no new neurological symptoms, neuro exam otherwise unchanged. No tele events. BP 180/90 today. 1. Acute ischemic CVA of right basal ganglia and right alvarado radiata 2. Left facial droop 3. Left hand apraxia 4. Essential hypertension Plan - Continue on telemetry - Continue ASA and Plavix - Increase Amlodipine to 10mg daily - Increase Lisinopril to 20mg, if no improvement may increase to 40mg - PT/OT - Atorvastatin 80mg daily - DVT PPx - Discharge today if BP is improved
[2016-08-07 07:46] VITALS: BP 170/80
[2016-08-07] MEDS ORDERED: LISINOPRIL20 M1 PO (10:25)
--- NOTE | 2016-08-07 13:29 | PN- Cardiology ---
Subjective Subjective: Doing well today. Ambulating. Left upper extremity issues resolving. No new issues. Objective Vital Signs and I&Os Vital Signs Date Time Temp Pulse Resp B/P Pulse O2 O2 Flow FiO2 Ox Delivery Rate 08/07 1255 180/90 08/07 0912 75 168/78 08/07 0911 75 168/78 08/07 0746 98.4 75 14 170/80 95 Room Air 08/07 0120 98.8 99 20 178/80 97 Room Air 08/07 0000 Room Air 08/06 1611 99.0 80 20 170/90 97 Room Air 08/06 1600 97 Room Air Intake & Output 08/07 1600 08/07 0800 08/07 0000 08/06 1600 08/06 0800 08/06 0000 Intake Total 500 600 400 600 Output Total Balance 500 600 400 600 Intake, Oral 500 600 400 600 Number 0 Bowel Movements Current Medications: Current Medications Sig/Heidi Start time Last Medication Dose Route Stop Time Status Admin Amlodipine Besylate 10 MG DAILY 08/07 1000 AC 08/07 PO 0911 Amlodipine Besylate 5 MG DAILY 08/04 1630 DC 08/06 PO 0853 Atorvastatin Calcium 80 MG 1700 08/04 1700 AC 08/06 PO 1724 Clopidogrel Bisulfate 75 MG DAILY 08/04 1909 AC 08/07 PO 0911 Ibuprofen 600 MG Q6P PRN 08/04 1215 AC 08/07 PO 0049 Lisinopril 10 MG ONCE ONE 08/07 1045 DC 08/07 PO 08/07 1046 1255 Lisinopril 10 MG DAILY 08/07 1000 AC 08/07 PO 0912 Lisinopril 5 MG DAILY 08/06 1052 DC 08/06 PO 1236 Oxycodone/ 1 TAB Q6P PRN 08/04 1215 AC 08/07 Acetaminophen PO 0352 Oxycodone/ 2 TAB Q6P PRN 08/04 1215 AC Acetaminophen PO Polyethylene Glycol 17 GM DAILY 08/07 1000 AC PO Senna/Docusate Sodium 1 TAB BID PRN 08/07 0100 AC PO Assessment/Plan Assessment/Plan Assessment- 1. CVA/TIA; his symptoms could be secondary to embolization of a carotid plaque versus carotid dissection after getting massage 2 days ago 2. Hypertension 3. HLD 4. CAD, s/p stents placed in 1999, CABG in 2014 5. Hypertensive urgency Plan- - Clinically improved - MRI noted - Neurology input noted - BP improved, but still intermittent elevated. Consider increasing lisinopril dose. -Once discharged, the patient can follow-up with me as an outpatient if he desires. Continue telemetry? No
[2016-08-07 15:49] VITALS: BP 190/86
--- NOTE | 2016-08-07 16:00 | Event Note ---
Event Note Event Note: Since morning the patient has received a total of 10 mg IV hydralazine push, 20 mg PO Lisinopril and 10 mg PO Amlodipine, but his blood pressure is still 190/ 90. We do not want his blood preassure to drop down very quickly but the gial BP is < 140-150. Will add HCTZ 12.5 mg PO starting tonight Lisinopril 40 mg Po Daily Continue with Amlodipine 10 mg PO Daily At 3:50 pm, the patient started complaining of palpitations. Will get Stat EKG showed sinus tachycardia @ [address]-Twave changes. Checked BP in both arms: Right 148/60 Left 180/80 Will get STAT CTA- aortic dissection protocol The patient was a discharge today but the discharge order has been cancelled and he will be monitored on Tele. Dr. Bennett updated. CTA was negative
[2016-08-07 16:09] VITALS: BP 148/60; BP 180/80
[2016-08-07] MEDS ORDERED: HYDROCHLOROTH12.5 M3 PO (16:48)
[2016-08-07] MEDS ORDERED: LISINOPRIL40 M1 PO (16:48)
--- NOTE | 2016-08-07 18:40 | CT SCAN REPORT ---
EXAMINATION: CT ANGIOGRAM CHEST, aortic study CLINICAL INFORMATION: Differences in blood pressure in each arm. History of stroke. COMPARISON: None. TECHNIQUE: Axial images obtained through the chest. IV contrast injected with timing parameters to opacify thoracic aorta. Coronal and sagittal reformatted images performed at CT scanner. No off site 3-D imaging. DLP: 1096.42 mGy-cm. FINDINGS: VASCULAR: Status post median sternotomy. No dissection of aorta. No aneurysm of aorta. Normal variant of two-vessel aortic arch. Normal enhancement of the great vessels. There is normal enhancement of the celiac axis. Small vascular wall calcification of the SMA. There is vascular calcification of the coronary arteries. Aortic measurements: Aortic root: 3.1 cm Proximal ascending aorta: 3.5 cm Aortic arch: 2.4 cm. Mid descending aorta. 2.3 cm. Distal descending aorta at the aortic hiatus. 2.3 cm MEDIASTINUM: No mediastinal mass. No significant lymphadenopathy. There is no pericardial effusion. LUNGS: The lungs are clear. No nodule or infiltrate. Central bronchial airways open. FLUID: There is no pericardial effusion. There is no pleural effusion. AXILLA: No significant lymphadenopathy. UPPER ABDOMEN: Adrenal glands normal. Visualized portions of liver and spleen unremarkable. Status post cholecystectomy. SKELETAL: Status post median sternotomy. Multilevel degenerative spondylosis of dorsal spine. IMPRESSION: No acute abnormality of the chest. No aortic dissection or aneurysm.
[2016-08-07 20:02] VITALS: BP 160/80; BP 164/70
[2016-08-08 00:07] VITALS: BP 148/70
[2016-08-08 08:28] VITALS: BP 158/86
--- NOTE | 2016-08-08 08:45 | PN- Housestaff ---
TOÑO GHOSH,IMGE 08/08/16 0845: Subjective Follow-up For: Lacunar stroke Hypertensive urgency Tele-Events Since Last Visit: Normal sinus rhythm HR 80s No overnight events Subjective: No acute events overnight. Patient seen and examined this morning. He feels well and has no complaints. He is eager to go home. Review of Systems Constitutional: Reports: no symptoms. Objective Last 24 Hrs of Vital Signs/I&O Vital Signs Date Time Temp Pulse Resp B/P Pulse O2 O2 Flow FiO2 Ox Delivery Rate 08/08 1302 138/86 08/08 0951 80 158/86 08/08 0951 80 158/86 08/08 0828 98.9 80 18 158/86 96 Room Air 08/08 0007 98.9 100 20 148/70 95 Room Air 08/07 2144 101 146/66 Intake & Output 08/08 1600 08/08 0800 08/08 0000 Intake Total 400 590 Output Total Balance 400 590 Intake, IV 40 Intake, Oral 400 550 Number 1 Bowel Movements Physical Exam General Appearance: Alert, Oriented X3, No Acute Distress HEENT: Atraumatic, Mucous Membr. moist/pink Neck: Supple Cardiovascular: Regular Rate, Normal S1, Normal S2 Lungs: Clear to Auscultation Abdomen: Soft, No Tenderness, Positive Bowel Sounds Extremities: No Clubbing, No Cyanosis, No Edema Current Medications: Current Medications Sig/Heidi Start time Last Medication Dose Route Stop Time Status Admin Amlodipine Besylate 10 MG DAILY 08/07 1000 DCD 08/08 PO 0951 Atorvastatin Calcium 80 MG 1700 08/04 1700 DCD 08/07 PO 1852 Clopidogrel Bisulfate 75 MG DAILY 08/04 1909 DCD 08/08 PO 0951 Hydrochlorothiazide 25 MG DAILY 08/08 1000 DCD 08/08 PO 0951 Ibuprofen 600 MG Q6P PRN 08/04 1215 DCD 08/07 PO 0049 Lidocaine 1 PAT ONCE ONE 08/07 2199 DC 08/07 EXT 08/07 2201 2351 Lisinopril 40 MG DAILY 08/07 2200 DCD 08/08 PO 0951 Oxycodone/ 1 TAB Q6P PRN 08/04 1215 DCD 08/08 Acetaminophen PO 0032 Oxycodone/ 2 TAB Q6P PRN 08/04 1215 DCD 08/08 Acetaminophen PO 0216 Polyethylene Glycol 17 GM DAILY 08/07 1000 DCD PO Senna/Docusate Sodium 1 TAB BID PRN 08/07 0100 DCD PO Orders Radiology Findings: CTA CHEST: No acute abnormality of the chest. No aortic dissection or aneurysm. Assessment/Plan Assessment: 60 y/o M with PMHx of CAD s/p CABG, HTN and HLD who presents with acute onset of left upper extremity apraxia and left facial droop. #Lacunar infarct: MRI with acute infarcts in the right basal ganglia and right alvarado radiata. * Discharge home today with instructions to follow up with neurology. * Patient will continue taking aspirin 81 mg PO daily, Plavix 75 mg PO daily and atorvastatin 80 mg PO daily on discharge. #Hypertensive urgency: BP was slightly elevated at 158/86 earlier this morning, but later improved to 138/86. CTA was obtained to rule out aortic dissection given different blood pressure obtained from left and right arms but was negative. * Amlodipine 10 mg PO daily, HCTZ 12.5 mg PO daily and Lisinopril 40 mg PO daily added to discharge medications. * Patient instructed to follow up with cardiology on discharge. Diet: Heart Healthy DVT PPx: ALPs CODE: FULL Problem List: 1. Hypertensive urgency 2. Right-sided lacunar stroke Pain Ratin Pain Location: N/A Pain Goal: Remain pain free Pain Plan: Lidocaine patch Percocet 2 tab PO Q6H PRN for severe pain (scale 7-10) Percocet 1 tab PO Q6H PRN and Motrin 600 mg PO Q6H for moderate pain (scale 4-6) Tomorrow's Labs & Rationales: None Discharge Plan Discharge Disposition: home Stable for Discharge? Yes Anticipated Discharge (Day): today CAMACHO SILVERIO MD 08/08/16 1820: Attending Review Statement Attending Statement Attending MD Statement: examined this patient, discuss w/resident/PA/RELAY DISPATCHER, agreed w/resident/PA/RELAY DISPATCHER, reviewed EMR data (avail), discussed with nursing, amended to note Attending Assessment/Plan: The patient was seen and discussed with house staff. Clinically doing well. BP slightly elevated this morning, however came down with current regimen. OK to discharge home today.
[2016-08-08 13:02] VITALS: BP 138/86
== END 2016-08-08 13:30 | DRG 65 ==
LOC: ENRESERVTM → ENRESERVDT → ERH 07:06 → ENPENDDIS 10:43 → 1NO 10:43 → EDPENDDISDT 10:43 → EDPENDDISTM 10:43 → ERHI 10:43 → 1NO 17:27
PROVIDERS: Emergency Medicine; Internal Medicine; ADMIT Internal Medicine
DX: I63.233 Cerebral infarction due to unspecified occlusion or stenosis of bilateral carotid arteries (principal); G81.94 Hemiplegia, unspecified affecting left nondominant side; I10 Essential (primary) hypertension; G51.0 Bell's palsy; R47.1 Dysarthria and anarthria; I16.0 Hypertensive urgency; I25.10 Atherosclerotic heart disease of native coronary artery without angina pectoris; Z95.1 Presence of aortocoronary bypass graft; F17.210 Nicotine dependence, cigarettes, uncomplicated; E66.9 Obesity, unspecified; Z68.33 Body mass index [BMI] 33.0-33.9, adult; I69.390 Apraxia following cerebral infarction; Z91.14 Patient's other noncompliance with medication regimen; E78.5 Hyperlipidemia, unspecified; Z95.5 Presence of coronary angioplasty implant and graft
CPT/HCPCS: 1NP; 70551; 86618; 36415; 82436; 93005; 93010; 93306; 96374; 97110-GO; 97112-GO; 97165-GO; 99291; J0360; Q2036

== ENCOUNTER 2016-11-18 00:49 | Inpatient (IN) | payer OTHER ==
[~2016-11-18] VITALS: Ht 172.7 cm; Wt 97.1 kg
[~2016-11-18 00:49] MED LIST: ALEVE220 M1 PO; AMLODIPINE BESY10 M1 PO; ASPIRIN325 M2 PO; ASPIRIN81 M4 PO; ATORVASTATIN CA80 M1 PO; HYDROCHLOROTH12.5 M3 PO; LISINOPRIL20 M1 PO; LISINOPRIL40 M1 PO; LISINOPRIL5 M1 PO; PLAVIX75 M1 PO; TOPROL XL50 M1 PO
--- NOTE | 2016-11-18 11:09 | Admission Core Measures ---
Admission Meds I reviewed the following Meds: Current Medications Sig/Heidi Start time Last Medication Dose Stop Time Status Admin Acetaminophen 975 MG ONCE 11/18 0000 NR (Tylenol) 11/18 2358 Amlodipine Besylate 10 MG DAILY 11/18 1000 AC (Norvasc) Atorvastatin Calcium 80 MG 1700 11/18 170 AC (Lipitor) Cefazolin Sodium 2,000 MG ONCE 11/18 0000 NR (Kefzol-Ancef Inj) 11/18 2358 Hydrochlorothiazide 12.5 MG DAILY 11/18 1000 AC (Hydrodiuril) Lisinopril 40 MG DAILY 11/18 1000 AC (Prinivil) Metoprolol Succinate 50 MG DAILY 11/18 1000 AC (Toprol Xl) Oxycodone HCl 10 MG ONCE 11/18 0000 NR (Roxicodone) 11/18 2358 Acute Coronary Syndrome Inclusion Criteria ACS Diagnosis No Inpatient Core Measures LDL Reminder: If No, please order W/I first 24hr of stay Congestive Heart Failure Inclusion Criteria CHF Diagnosis No Cerebrovascular accident Inclusion Criteria CVA/TIA Diagnosis No Inpatient Core Measures Bedside Swallow Eval Reminder: If BSE failed, place ST order Antithrombotic Reminder: Order Antithrombotic Medication by end of day 2 Antithrombotic Reminder: Document Reason Antithrombotic Not ordered by end of day 2 AFIB/Flutter Reminder: If Present, add to problem list AFIB/Flutter Reminder: Order Anticoag Medication for pts with AFIB/Flutter Atherosclerosis Reminder: If Present, add to problem list LDL Reminder: If No, please order W/I first 24hr of stay PT Order Reminder: If No, please order Venous thromboembolism Inpatient Core Measures VTE Risk Factors: Age > 40, Surgery No [facility] VTE prophylaxis d/t No contraindications No VTE Pharm Prophylaxis d/t No contraindications Inclusion Criteria - Per Current guidelines, there needs to be overlap - treatment for the first 5 days of Warfarin therapy. - Parenteral Anticoagulation (IV or SC) needs to be - given along with Warfarin therapy. VTE Diagnosis No VTE Type NONE VTE Confirmed by (Test) NONE Problem List As ranked by this Provider includes Assessment & Plan 1. Unilateral primary osteoarthritis, left hip HOME MEDS Home Med List Amlodipine Besylate 10 MG TABLET 1 TAB PO DAILY high blood pressure Aspirin (Aspirin*) 81 MG TAB.CHEW 1 TAB PO DAILY stroke Atorvastatin Calcium 80 MG TABLET 80 MG PO 1699 stroke Clopidogrel Bisulfate (Plavix) 75 MG TABLET 75 MG PO DAILY stroke Hydrochlorothiazide 12.5 MG CAPSULE 1 CAP PO DAILY BP Lisinopril 40 MG TABLET 1 TAB PO DAILY BP
[2016-11-18] MEDS ORDERED: MIRALAX17 G1 PO (11:13)
[2016-11-18] MEDS ORDERED: MS CONTIN30 M1 PO (11:13)
[2016-11-18] MEDS ORDERED: COLACE100 M1 PO (11:13)
[2016-11-18] MEDS ORDERED: DILAUDID2 M1 PO (11:13)
--- NOTE | 2016-11-18 11:16 | Patient Discharge Instructions ---
Discharge Instructions General Discharge Information You were seen/treated for: Left hip pain related to unilateral primary osteoarthritis You had these procedures: Left total hip replacement Watch for these problems: Increasing pain despite the use of pain medication Increasing redness, warmth or swelling Drainage of any type from incision Inability to bear weight on operative leg Persistent nausea and vomiting Fever greater than 101.5 degrees Do not soak the wound: Yes No bath, but you may shower: Yes Other wound care: Please keep wound clean and dry. No ointments or lotions of any type on or near incision at any time. No exceptions. Your dressing will be changed by your nurse on the second day after your surgery. Daily dry dressing changes are recommended each day thereafter. Do not soak your wound in a bath at any time until otherwise indicated by your surgeon. You may shower, please dry wound immediately after shower with a clean towel. Special Instructions: Aspirin and Plavix: You will be taking Aspirin twice daily for three weeks. In two weeks from date of surgery, you will restart your home dose of Plavix. There will be a period of one week where you will be taking both medications. After that week, you will stop taking aspirin and you will remain on Plavix only. Constipation: Pain medication can cause constipation. Dr. Craig has recommended that you take Colace and miralax each day. You may discontinue this medication if you develop loose stool or diarrhea. If you wish to continue this medication, it is available over the counter. If you are unable to move your bowels after several days, if you are unable to pass gas and are developing bloating, nausea, or vomiting as a result, please contact your doctor. Diet Continue normal diet: Yes Recommended Diet: Heart Healthy Activity Full Activity/No Limits: No Activity Self Limited: Yes Pounds, do NOT lift more than: 10 Acute Coronary Syndrome Inclusion Criteria At DC or during hospital stay patient has or had the following: ACS DIAGNOSIS No Discharge Core Measures Meds if any: Prescribed or Continued at Discharge Meds if any: NOT Prescribed or Continued at Discharge Congestive Heart Failure Inclusion Criteria At DC or during hospital stay patient has or had the following: CHF DIAGNOSIS No Discharge Core Measures Meds if any: Prescribed or Continued at Discharge Meds if any: NOT Prescribed or Continued at Discharge Cerebrovascular accident Inclusion Criteria At DC or during hospital stay patient has or had the following: CVA/TIA Diagnosis No Discharge Core Measures Meds if any: Prescribed or Continued at Discharge Meds if any: NOT Prescribed or Continued at Discharge Venous thromboembolism Inclusion Criteria VTE Diagnosis No VTE Type NONE VTE Confirmed by (Test) NONE Discharge Core Measures - Per Current guidelines, there needs to be overlap - treatment for the first 5 days of Warfarin therapy. - If discharged on Warfarin prior to 5 days of - overlap therapy, the patient will need to be - assessed for post discharge needs including - *Post discharge parental anticoagulation - *Warfarin and/or parental anticoagulation education - *Follow up date to check INR post discharge At least 5 days overlap therapy as Inpatient No Meds if any: Prescribed or Continued at Discharge Note: Overlap Therapy is Warfarin and Anticoagulant Meds if any: NOT Prescribed or Continued at Discharge
--- NOTE | 2016-11-18 11:19 | Surgical Discharge Summary ---
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 Spouse What is Your Primary Language? Telugu Review of Systems: See H&P Hospital Course Course Attending Physician: KIMBERLY GUZMAN MD Primary Care Physician: MALIKA ABRAHAM MD Hospital Course: Patient was admitted to the hospital for an elective total joint replacement. The procedure was tolerated well and patient was transferred to a general surgical floor. Diet was advanced and tolerated, and the patient voided spontaneously. The patient was evaluated and treated by physical therapy. At the time of hospital discharge, the vital signs were stable, neurovascular status was intact, and pain was controlled with the use of oral pain medications. Allergies: Coded Allergies: naproxen (From ALEVE) (HTN 11/09/16) Disposition Summary Disposition Principal Diagnosis: Left hip unilateral primary osteoarthritis Additional Diagnosis: None Discharge Disposition: home health services Discharge Instructions General Discharge Information Code Status: Full Code Patient's Diet: Heart healthy, advance as tolerated Patient's Activity: WBAT Follow-Up Instructions/Appts: Follow up with Dr. Guzman in 6 weeks from date of surgery. Please call his office to arrange and/or confirm this appointment. Medications at Discharge Discharge Medications: Stop taking the following medications: Aspirin (Aspirin*) 81 MG TAB.CHEW ORAL DAILY Qty = 30 Clopidogrel Bisulfate (Plavix) 75 MG TABLET ORAL DAILY Qty = 30 Continue taking these medications: Amlodipine Besylate (Amlodipine Besylate) 10 MG TABLET 1 Tablet ORAL DAILY Qty = 30 Comments: Last Taken: 08/08/16 Time: 10 AM Atorvastatin Calcium (Atorvastatin Calcium) 80 MG TABLET 80 Milligram ORAL 5 PM Qty = 30 Comments: Last Taken: 08/07/16 Time: 7 pm Hydrochlorothiazide (Hydrochlorothiazide) 12.5 MG CAPSULE 1 Capsule ORAL DAILY Qty = 30 Comments: Last Taken: 08/08/16 Time: 10 am Lisinopril (Lisinopril) 40 MG TABLET 1 Tablet ORAL DAILY Qty = 30 Comments: Last Taken: 08/08/16 Time: 10 am Metoprolol Succ XL (Toprol Xl) 50 MG TAB Milligram ORAL DAILY Start taking the following new medications: Docusate Sodium (Colace) 100 MG CAPSULE 1 Capsule ORAL TWICE DAILY Qty = 14 No Refills Instructions: DISCONTINUE USE IF YOU DEVELOP LOOSE STOOL OR DIARRHEA Hydromorphone HCl (Dilaudid) 2 MG TABLET 1-2 Tablet ORAL EVERY 4-6 HOURS NEEDED as needed for PAIN Qty = 36 No Refills Morphine Sulfate (Ms Contin) 30 MG TABLET.ER 1 Tablet ORAL TWICE DAILY Qty = 2 No Refills Polyethylene Glycol 3350 (Miralax) 17 GRAM POWD.PACK 1 Packet ORAL DAILY Qty = 7 No Refills Instructions: dissolve in water, DISCONTINUE USE IF YOU DEVELOP LOOSE STOOL OR DIARRHEA Aspirin (Ecotrin*) 325 MG TABLET.DR 1 Tablet ORAL TWICE DAILY Qty = 60 No Refills Instructions: TAKE FOR THREE WEEKS. RESTART PLAVIX IN TWO WEEKS, ONE WEEK OVERLAP WITH BOTH MEDS.
[2016-11-18 13:46] VITALS: BP 120/72
--- NOTE | 2016-11-18 14:02 | PN- Orthopedic ---
Subjective Subjective: POST-OP NOTE: Reports expected left hip "soreness". Not yet out of bed. No nausea. Hasn't voided post-op yet. Denies dizziness. No shortness of breath. No chest pains. Objective Vital Signs and I&Os Vital Signs Date Time Temp Pulse Resp B/P B/P Pulse O2 O2 Flow FiO2 Mean Ox Delivery Rate 11/18 1346 97.7 61 18 120/72 93 Room Air Intake & Output 11/18 1600 11/18 0800 11/18 0000 11/17 1600 11/17 0800 11/17 0000 Intake Total Output Total Balance Patient 214 lb Weight Weight Reported by Patient Measurement Method Physical Exam: General - alert & oriented x 3. comfortable. no acute distress. Lungs - clear bilaterally. no w/r/r. Cardiac - s1s2. reg. Abdomen - soft. nontender. Extremities - warm bilaterally. left hip dressing c/d/i. no hematoma. no drains. nvi. calves soft and nontender b/l. Current Medications: Current Medications Sig/Heidi Start time Last Medication Dose Route Stop Time Status Admin Acetaminophen 1,000 MG Q6 11/18 1200 AC IV 11/19 0601 Acetaminophen 0 .STK-MED ONE 11/18 0855 DC PO Acetaminophen 975 MG ONCE 11/18 0000 DC PO 11/18 2359 Amlodipine Besylate 10 MG DAILY 11/19 1000 AC PO Amlodipine Besylate 10 MG DAILY 11/18 1000 DC PO Aspirin 325 MG BID 11/18 2200 AC PO Atorvastatin Calcium 80 MG 1700 11/18 1700 DC PO Atorvastatin Calcium 80 MG 1700 11/18 1700 AC PO Cefazolin Sodium 2 GM IQ8 11/18 1600 AC N/A 1 UNIT IV 11/19 0029 Cefazolin Sodium 2,000 MG ONCE 11/18 0000 DC IV 11/18 2359 Dextrose/Sodium 1,000 ML .[id number] 11/18 1315 AC Chloride IV Docusate Sodium 100 MG BID 11/18 2200 AC PO Famotidine 20 MG DAILY 11/19 1000 AC PO Hydrochlorothiazide 12.5 MG DAILY 11/19 1000 AC PO Hydrochlorothiazide 12.5 MG DAILY 11/18 1000 DC PO Hydromorphone HCl 2 MG Q4P PRN 11/18 1315 AC PO Hydromorphone HCl 4 MG Q4P PRN 11/18 1315 AC PO Lisinopril 40 MG DAILY 11/19 1000 AC PO Lisinopril 40 MG DAILY 11/18 1000 DC PO Metoprolol Succinate 50 MG DAILY 11/19 1000 AC PO Metoprolol Succinate 50 MG DAILY 11/18 1000 DC PO Morphine Sulfate 2 MG Q2P PRN 11/18 1315 AC IV Ondansetron HCl 4 MG Q6P PRN 11/18 1315 AC IV Oxycodone HCl 0 .STK-MED ONE 11/18 0855 DC PO Oxycodone HCl 10 MG ONCE 11/18 0000 DC PO 11/18 2359 Polyethylene Glycol 17 GM DAILY 11/19 1000 AC PO Promethazine HCl 12.5 MG Q6P PRN 11/18 1315 AC IV 11/25 1059 Assessment/Plan Assessment/Plan This 60 year old male with hx htn, hld, hx cva, is POD#0 s/p left total hip replacement for unilateral primary osteoarthritis advance diet as tolerated pain control as ordered asa bid - dvt ppx rubina-operative ancef x 2 doses home meds re-ordered, including beta des due to void by evening awaiting PT eval f/u am labs d/c planning for home tomorrow will d/w Core Measures/Miscellaneous Venous Thromboembolism VTE Risk Factors: Age > 40, Surgery VTE Contraindications: No Contraindications VTE Diagnosis: No VTE Type: NONE VTE Confirmed by (Test): NONE Beta Des Is Beta Des a Home Med? Yes If Yes, Was This Ordered Today? Yes Antibiotics Is Patient on Antibiotics? Yes If Yes: prophylaxis
--- NOTE | 2016-11-18 15:31 | NUR ---
PT ARRIVED TO FLOOR AT 1300 VIA STRETCHER, ASSISTED TO BED. A/O, RA, VSS AT THIS TIME. NO COMPLAINTS OF PAIN. FALL PRECAUTIONS IN PLACE. OTHRO'S NEGATIVE, PT OOB WITH PT, TOLERATED WELL WITH RW. BACK TO CHAIR, 6/10 PAIN, IV TYLENOL GIVEN WITH GOOD EFFECT. WILL CONTINUE TO MONITOR
--- NOTE | 2016-11-18 16:03 | RADIOLOGY REPORT ---
EXAMINATION: XR HIP, LEFT CLINICAL INFORMATION: Left hip replacement. Postop COMPARISON: None TECHNIQUE: Two views of the left hip. FINDINGS: Status post left total hip replacement. Orthopedic components in position. There is air in the soft tissues from the recent surgery. IMPRESSION: Status post left hip replacement.
[2016-11-18 16:36] VITALS: BP 116/66
--- NOTE | 2016-11-18 17:34 | Operative Report ---
Operative/Inv Procedure Report Surgery Date: 11/18/16 Name of Procedure: Left total hip replacement Pre-Operative Diagnosis: Primary left hip DJD Post-Operative Diagnosis: Same Estimated Blood Loss: 250 Surgeon/Entry Level Account Representative: THOMAS GHOSH,KIMBERLY Wong Anesthesia: block Operative/Procedure Note Note: Description of Procedure: The patient was taken to the operating room and positively identified. After induction of spinal anesthesia and administration of appropriate pre-operative antibiotics, the patient was positioned supine on the operating room table and all bony prominences were well padded. After performing a surgical timeout, the left lower extremity was prepped and draped in the usual sterile fashion. A direct anterior approach was made to the left hip. The incision was carried sharply through superficial soft tissues to the level of the fascia. Meticulous hemostasis was maintained with Bovie electocautery. The fascia over the tensor fascia barbara muscle was opened sharply and the interval between the TFL and the sartorius was entered bluntly taking care to stay lateral to the lateral femoral cutaneous nerve. Retractors were placed around the femoral neck and the pericapsular fat was identified. The ascending branches of the lateral femoral circumflex vessels were identified and carefully coagulated. The pericapsular fat and anterior capsule were then resected. A napkin ring osteotomy was performed and the femoral head was removed without difficulty. Attention was then turned to the acetabulum. After appropriate placement of retractors, the acetabulum was exposed. Soft tissue was cleaned from the acetabular margin and notch. Overhanging osteophytes were removed and the teardrop was exposed. The acetabulum was then sequentially reamed to accept a 56 mm Maria Del Carmen Tritanium hemispherical solid back shell. This was impacted into place in the appropriate position and fitted with a 36 mm Trident X3 zero degree polyethylene insert. Attention was then turned to the femur. After performing the appropriate ligament releases, the proximal femur was exposed. It was then sequentially broached to accept a size 5 Maria Del Carmen Accolade 2 stem. This was trialed for leg length and stability. The trial component was removed and the final component was impacted into place. The trunnion was carefully cleaned and fit with a 36 mm, +5 Biolox delta ceramic femoral head. The hip was reduced and put through a full range of motion and found to be stable. The articular space was then irrigated with sterile saline. The periarticular soft tissues were infilitrated with Marcaine. The fascial layer was closed with interrupted #1 vicryl suture and the skin was re-approximated with interrupted 2 -0 vicryl. The skin was closed with a running 3-0 V-Lock suture. Steri-strips and a sterile dressing were applied. The patient was awakened and taken to the recovery room in satisfactory condition.
[2016-11-18] MEDS ORDERED: ASPIRIN EC325 M2 PO (17:58)
[2016-11-18 18:42] VITALS: BP 126/70
[2016-11-18 22:50] VITALS: BP 130/70
[2016-11-19 04:23] VITALS: BP 146/82
[2016-11-19 07:47] VITALS: BP 130/60; BP 130/70
[2016-11-19 08:23] LABS: ABSOLUTE BASOPHIL COUNT 0 /CUMM (0.0-0.2); ABSOLUTE EOSINOPHIL COUNT 0 /CUMM (0.0-0.7); ABSOLUTE GRANULOCYTE CT 11.6 /CUMM (1.4-6.5); ABSOLUTE LYMPH COUNT 1.5 /CUMM (1.2-3.4); ABSOLUTE MONOCYTE COUNT 1.7 /CUMM (0.10-0.60); BASOPHIL % 0.1 % (0.0-2.0); EOSINOPHIL % 0.3 % (0-5); GRANULOCYTE % 77.9 % (42.2-75.2); HEMATOCRIT 31.5 % (42-52); MEAN CORPUSCULAR HGB 29.9 PG (27.0-31.0); MEAN PLATELET VOLUME 9.1 FL (7.4-10.4); PLATELET COUNT 195 /CUMM (130-400); RBC DISTRIBUTION WIDTH 12.6 % (11.5-14.5); RED BLOOD CELL CT 3.59 /CUMM (4.70-6.10); WHITE BLOOD CELL COUNT 14.9 /CUMM (4.8-10.8)
--- NOTE | 2016-11-19 09:09 | PN- Orthopedic ---
Subjective Subjective: Patient is comfortable, mild complaints of pain and spasm that is controlled with pain medication. The spasm resolved this morning. He is feeling well otherwise, he is cleared physical therapy and is anxious to be discharged home today. He is tolerating his diet, he is voiding Objective Vital Signs and I&Os Vital Signs Date Time Temp Pulse Resp B/P B/P Pulse O2 O2 Flow FiO2 Mean Ox Delivery Rate 11/19 0747 98.3 63 18 130/60 95 Room Air 11/19 0423 98.2 68 20 146/82 95 Room Air 11/18 2250 98.1 78 20 130/70 95 Room Air 11/18 1846 Room Air 11/18 1842 98.2 63 20 126/70 94 Room Air 11/18 1636 97.4 64 20 116/66 96 Room Air 11/18 1520 98.1 11/18 1346 97.7 61 18 120/72 93 Room Air Intake & Output 11/19 1600 11/19 0800 11/19 0000 11/18 1600 11/18 0800 11/18 0000 Intake Total 1080 630 220 Output Total 600 600 Balance 480 30 220 Intake, IV 600 150 100 Intake, Oral 480 480 120 Output, Urine 600 600 Patient 214 lb Weight Weight Reported by Patient Measurement Method Physical Exam: Well-developed well-nourished no apparent distress. HEENT: Atraumatic, extraocular motion intact Neck: Supple, no lymphadenopathy Respiratory: No respiratory distress Extremities: No edema left lower extremity hip dressing in place, Dressing clean dry and intact Mild thigh edema No signs of infection. No shortening or rotation Hip range of motion is limited and without unexpected pain Neurovascularly intact distally Bilateral calves are supple, nontender. Neuro: Alert and oriented x3 Psych: Mood affect normal, normal memory normal judgment. Skin: Warm and dry, no rash on exposed skin Results Last 48 Hours of Labs: Laboratory Tests 11/19 0636 Chemistry Sodium (137 - 145 mmol/L) 137 Potassium (3.5 - 5.1 mmol/L) 3.8 Chloride (98 - 107 mmol/L) 102 Carbon Dioxide (22 - 30 mmol/L) 25 Anion Gap (5 - 16) 10 BUN (9 - 20 mg/dL) 18 Creatinine (0.7 - 1.2 mg/dL) 0.7 Estimated GFR (>60 ml/min) > 60 BUN/Creatinine Ratio (7 - 25 %) 25.7 H Hematology CBC w Diff NO MAN DIFF REQ WBC (4.8 - 10.8 /CUMM) 14.9 H RBC (4.70 - 6.10 /CUMM) 3.59 L Hgb (14.0 - 18.0 G/DL) 10.7 L Hct (42 - 52 %) 31.5 L MCV (80.0 - 94.0 FL) 88.0 MCH (27.0 - 31.0 PG) 29.9 RDW (11.5 - 14.5 %) 12.6 Plt Count (130 - 400 /CUMM) 195 MPV (7.4 - 10.4 FL) 9.1 Gran % (42.2 - 75.2 %) 77.9 H Lymphocytes % (20.5 - 51.1 %) 10.0 L Monocytes % (1.7 - 9.3 %) 11.7 H Eosinophils % (0 - 5 %) 0.3 Basophils % (0.0 - 2.0 %) 0.1 Absolute Granulocytes (1.4 - 6.5 /CUMM) 11.6 H Absolute Lymphocytes (1.2 - 3.4 /CUMM) 1.5 Absolute Monocytes (0.10 - 0.60 /CUMM) 1.7 H Absolute Eosinophils (0.0 - 0.7 /CUMM) 0 Absolute Basophils (0.0 - 0.2 /CUMM) 0 PUBS MCHC (33.0 - 37.0 G/DL) 34.0 Assessment/Plan Assessment/Plan Postoperative day #1 status post left total hip arthroplasty anterior approach. Orthopedically stable for discharge home today. Continue aspirin. Pain medication as needed. Patient cleared physical therapy. Follow-up as outpatient with Dr. Craig in 6 weeks, home therapy and nursing required Core Measures/Miscellaneous Venous Thromboembolism VTE Risk Factors: Age > 40, Surgery VTE Contraindications: No Contraindications VTE Diagnosis: No VTE Type: NONE VTE Confirmed by (Test): NONE Beta Des Is Beta Des a Home Med? Yes If Yes, Was This Ordered Today? Yes Antibiotics Is Patient on Antibiotics? Yes If Yes: prophylaxis
[2016-11-19 14:02] VITALS: BP 122/58
== END 2016-11-19 14:31 | disposition home health service (06) | DRG 470 ==
LOC: SDA 00:49 → ENRESERV 12:03 → ENTRNSPT 12:29 → EDTRNSPT 12:32 → EDTRNSPTSTS 12:52 → 2NA 13:01 → CMPTRNSPT 13:28 → ENPENDDIS 11-19 09:37 → 2NA 11-19 14:31
PROVIDERS: Nurse Practitioner; ADMIT Orthopaedic Surgery
PROC: 0SRB04A Replacement of Left Hip Joint with Ceramic on Polyethylene Synthetic Substitute, Uncemented, Open Approach (ICD-10-PCS; principal; 2016-11-18)
DX: M16.11 Unilateral primary osteoarthritis, right hip (principal); I10 Essential (primary) hypertension; M25.752 Osteophyte, left hip; G51.0 Bell's palsy; I25.10 Atherosclerotic heart disease of native coronary artery without angina pectoris; E78.5 Hyperlipidemia, unspecified; Z95.1 Presence of aortocoronary bypass graft
CPT/HCPCS: 2NASP; 36415; 73502-LT; 82436; 88304; 97110-GO; 97116-GO; 97161-GP; J0131; J0690; J0735; J2405; J2550; J7042